=== PATIENT | male | born 1950 | race Caucasian/White ===

== ENCOUNTER 2017-03-27 23:05 | Emergency (ER) | payer OTHER ==
[2017-03-27 23:21] VITALS: TEMP 98; BMI 28.0
[2017-03-27] MEDS ORDERED: DECADRON 4 MG/ML SDV IM STA (23:29)
--- NOTE | 2017-03-27 23:32 | ED.PDOC ---
General ED Provider: Dr. MARCO LOYD Chief Complaint: Dizziness Stated Complaint: Been dizzi for couple days, but getting worse in 2-3 days, also has some allergies, cold symptoms. dizzi moving head, bending. Time Seen by Physician: 23:30 Mode of Arrival: Walk-In Information Source: Patient Primary Care Provider: GEORGETTE PHELPS Nursing and Triage Documentation Reviewed and Agree: Yes Neurological Complaint Exam - Dizziness Complaint/Exam Onset: Gradual Symptoms Are: Still present Timing: Constant Episodes Lasting: Hours Initial Severity: Moderate Current Severity: Moderate Character: Reports: Room spinning Aggravating: Reports: Position change, Supine to erect, Change in head position Alleviating: Reports: Rest Associated Signs and Symptoms: Denies: Nausea, Vomiting, Diaphoresis, Tinnitus, Chest pain, Short of air, Palpitations, Unsteady gait, GI blood loss, Visual changes, Decreased oral intake, Change in medication, Change in diet, OTC meds, Loss of balance Related History: Similar episode Cardiac Risk Factors: Reports: Hypertension CVA Risk Factors: Reports: Hypertension Related Surgical History: Reports: None JVD Present: No Carotid Bruit Present: No Rectal Heme Positive: No Nystagmus Present: No Gag Reflex Present: Yes Meningeal Signs Positive: No Focal Weakness: Present: None Focal Sensory Loss: Present: None Gait: Normal [id number]: Normal Findings Romberg Test Positive: No Babinski Sign: Negative Right, Negative Left Heel to Toe Normal: No Preet-Hallpike Test Positive: No Differential Diagnoses: Labyrinthitis, Meniere's Quality Indicators for Cardiac Chest Pain: EKG in 10min. Review of Systems - Review Of Systems Constitutional: Reports: No symptoms Eyes: Reports: No symptoms Ears, Nose, Mouth, Throat: Reports: No symptoms Respiratory: Reports: No symptoms Cardiac: Reports: No symptoms GI: Reports: No symptoms : Reports: No symptoms Musculoskeletal: Reports: No symptoms Skin: Reports: No symptoms Neurological: Reports: No symptoms Endocrine: Reports: No symptoms Hematologic/Lymphatic: Reports: No symptoms All Other Systems: Reviewed and Negative Past Medical History - Past Medical History Previously Healthy: No Endocrine: Reports: Hyperthyroid Cardiovascular: Reports: Hypertension Respiratory: Reports: None Hematological: Reports: None Gastrointestinal: Reports: None Genitourinary: Reports: None Neuro/Psych: Reports: Anxiety Musculoskeletal: Reports: Arthritis, Back Pain Cancer: Reports: Other (prostate) - Surgical History General Surgical History: Reports: None - Family History Family History: Reports: None - Social History Smoking Status: Former smoker Hx Substance Use: No Alcohol Screening: None - Immunizations Tetanus Shot up to Date: Yes Physical Exam - Physical Exam Appearance: Well-appearing, No pain distress, Well-nourished Eyes: REMI, EOMI, Conjunctiva clear ENT: Ears normal, Nose normal, Oropharynx normal Respiratory: Airway patent, Breath sounds clear, Breath sounds equal, Respirations nonlabored Cardiovascular: RRR, Pulses normal, No rub, No murmur GI/: Soft, Nontender, No masses, Bowel sounds normal, No Organomegaly Musculoskeletal: Normal strength, ROM intact, No edema, No calf tenderness Skin: Warm, Dry, Normal color Neurological: Sensation intact, Motor intact, Reflexes intact, Cranial nerves intact, Alert, Oriented Psychiatric: Affect appropriate, Mood appropriate Interpretation - Radiology Interpretation Radiology Interpretation By: Radiologist Radiology Results: Positive Exam Interpreted: CT Scan Critical Care Note - Critical Care Note Total Time (mins): 0 Course - Course Hematology/Chemistry: 03/27/17 23:30 03/27/17 23:30 Orders, Labs, Meds: Lab Review 03/27/17 03/27/17 23:30 23:30 WBC 5.63 RBC 4.70 Hgb 15.4 Hct 42.6 MCV 90.6 MCH 32.8 H MCHC 36.2 H RDW Coeff of Tai 13.5 Plt Count 148 Immature Gran % (Auto) 0.2 Neut % (Auto) 49.0 Lymph % (Auto) 35.9 [place] % (Auto) 10.5 H Eos % (Auto) 3.0 Baso % (Auto) 1.4 Immature Gran # (Auto) 0.0 Neut # 2.8 Lymph # 2.0 [place] # 0.6 Eos # 0.2 Baso # 0.1 Sodium 140 Potassium 3.8 Chloride 105 Carbon Dioxide 27 Anion Gap 11.8 BUN 20 H Creatinine 0.95 Estimated GFR (MDRD) 79.00 BUN/Creatinine Ratio 21.05 Glucose 180 H Calcium 9.7 Total Bilirubin 2.27 H AST 33 ALT 61 Alkaline Phosphatase 97 Total Creatine Kinase 75 Troponin I 0.0310 Total Protein 7.8 Albumin 3.8 Globulin 4.0 Albumin/Globulin Ratio 0.95 Orders Category Date Time Status EKG-(ED ONLY) Stat CARDIO 03/27/17 23:29 Completed CBC W/ AUTO DIFF Stat LAB 03/27/17 23:30 Completed COMPREHENSIVE METABOLIC PANEL Stat LAB 03/27/17 23:30 Completed CREATINE KINASE Stat LAB 03/27/17 23:30 Completed TROPONIN I Stat LAB 03/27/17 23:30 Completed Dexamethasone 4 mg/ml Inj [Decadron 4 mg/ml Sdv] MEDS 03/27/17 23:29 Discontinued 4 mg IM ONCE STA Ketorolac Tromethamine [Toradol] MEDS 03/28/17 00:41 Discontinued 30 mg IM ONCE STA CT HEAD W/O CONTRAST Stat RADS 03/27/17 23:29 Completed Medications Discontinued Medications Generic Name Dose Route Start Last Admin Trade Name Freq PRN Reason Stop Dose Admin Dexamethasone Sodium Phosphate 4 mg 03/27/17 23:29 03/27/17 23:41 Decadron 4 Mg/Ml Sdv IM 03/27/17 23:30 4 mg ONCE STA Administration Ketorolac Tromethamine 30 mg 03/28/17 00:41 Toradol IM 03/28/17 00:42 ONCE STA Vital Signs: Temp Pulse Resp BP Pulse Ox 03/27/17 23:44 54 L 138/68 03/27/17 23:43 54 L 167/72 H 03/27/17 23:08 98 F 56 L 20 168/71 H 98 Departure - Departure Time of Disposition: 00:48 Disposition: HOME SELF-CARE Discharge Problem: Dizziness Instructions: Dizziness (ED) Condition: Good Pt referred to PMD for follow-up: Yes Additional Instructions: REST iNCREASE HYDRATION F/U WITH dR PHELPS IN 2-3 DAYS Prescriptions: Cephalexin [Keflex] 500 mg PO Q12HR #20 capsule Prednisone 10 mg PO BIDWM #14 tablet Allergies/Adverse Reactions: Allergies No Known Allergies Allergy (Unverified 03/27/17 23:20) Home Medications: Ambulatory Orders Alprazolam [Xanax] 0.5 mg PO TID PRN 03/27/17 Cyanocobalamin (Vitamin B-12) [Vitamin B-12] 1,000 mcg PO DAILY 03/27/17 Furosemide [Lasix] 40 mg PO DAILY 03/27/17 Hydrocodone Bit/Acetaminophen [[place] 7.5-325] 7.5 - 325 mg PO Q8H PRN 03/27/17 Lisinopril [Zestril] 20 mg PO BID 03/27/17 Potassium Chloride [K-Dur] 20 meq PO TID 03/27/17 Cephalexin [Keflex] 500 mg PO Q12HR #20 capsule 03/28/17 Prednisone 10 mg PO BIDWM #14 tablet 03/28/17 Disposition Discussed With: Patient, Family
[2017-03-27 23:38] LABS: BASOPHILS # (AUTO) 0.1 K/uL (0-0.2); BASOPHILS % (AUTO) 1.4 % (0.0-3.0); EOSINOPHILS # (AUTO) 0.2 K/ul (0.0-0.7); HEMATOCRIT 42.6 % (42.0-52.0); HEMOGLOBIN 15.4 g/dl (14.0-18.0); IMMATURE GRANULOCYTE % (AUTO) 0.2 % (0.0-5.0); LYMPHOCYTES % (AUTO) 35.9 (10.0-50.0); MEAN CORPUSCULAR HEMOGLOBIN 32.8 pg (27.0-31.0); MEAN CORPUSCULAR HGB CONC 36.2 (31.8-35.4); MEAN CORPUSCULAR VOLUME 90.6 fl (80.0-94.0); MONOCYTES # (AUTO) 0.6 K/uL (0.4-2.0); MONOCYTES % (AUTO) 10.5 (0-10); NEUTROPHILS # (AUTO) 2.8 K/ul (2.0-6.9); PLATELET COUNT 148 10^3/uL (140-440); WHITE BLOOD COUNT 5.63 K/ul (4.2-10.2)
[2017-03-27 23:44] VITALS: BP 138/68
[2017-03-28 00:03] LABS: ALBUMIN 3.8 g/dL (3.4-5.0); ALBUMIN/GLOBULIN RATIO 0.95; ANION GAP 11.8; BILIRUBIN,TOTAL 2.27 mg/dL (0.00-1.20); BUN/CREATININE RATIO 21.05; CALCIUM 9.7 mg/dL (8.2-10.2); CREATININE 0.95 mg/dL (0.60-1.10); POTASSIUM 3.8 mmol/L (3.5-5.1); TOTAL PROTEIN 7.8 g/dL (5.8-8.1); TROPONIN I 0.031 ng/ml (0.0000-0.4000)
--- NOTE | 2017-03-28 00:15 | CT ---
EXAM: CT head without contrast 03/27/2017. Sagittal and coronal reformatted images obtained HISTORY: Dizziness COMPARISON: None. FINDINGS: There is no evidence of intracranial hemorrhage. The midline is maintained. There is no h ydrocephalus. Generalized atrophy. Chronic small vessel ischemic changes. No cerebellar tonsillar ectopia. Evaluation of the calvarium shows no fracture. Small right mastoid effusion. IMPRESSION: 1. No intracranial hemorrhage. 2. Atrophy and small vessel ischemic change. 3. Small right mastoid effusion.
[2017-03-28] MEDS ORDERED: TORADOL IM STA (00:41)
== END 2017-03-28 01:04 | disposition home or self-care (01) ==
LOC: ED 23:05
DX: R42 Dizziness and giddiness (principal); I10 Essential (primary) hypertension; Z79.899 Other long term (current) drug therapy
CPT/HCPCS: 36415; 80053; 82550; 84484; 85025; 93005; 93010; 96372; 99283

== ENCOUNTER 2017-12-26 09:00 | Outpatient (CLI) ==
--- NOTE | 2017-12-26 10:29 | DI ---
EXAM: Three views of the right foot. History: Right foot pain. Findings: No acute fracture or dislocation. No abnormal calcifications or radiopaque foreign bodies . Mild polyarticular joint space narrowing. No erosive osseous changes. Impression: 1. No acute osseous abnormality. 2. Mild polyarticular arthritis
== END 2017-12-26 09:01 | disposition home or self-care (01) ==
LOC: RAD 09:00
PROVIDERS: ATTEND Emergency Medicine
DX: M79.671 Pain in right foot (principal)

== ENCOUNTER 2018-04-09 10:13 | Outpatient (CLI) ==
[2018-04-10 21:54] VITALS: BMI 26.9
== END 2018-04-09 10:14 | disposition home or self-care (01) ==
LOC: FCC-LAB 10:13
PROVIDERS: ATTEND Family Medicine
DX: R73.9 Hyperglycemia, unspecified (principal); R35.1 Nocturia; Z85.51 Personal history of malignant neoplasm of bladder
CPT/HCPCS: 36415; 83037

== ENCOUNTER 2018-04-10 21:33 | Inpatient (IN) ==
[2018-04-10 21:54] VITALS: BMI 26.9
[2018-04-10] MEDS ORDERED: SODIUM CHLORIDE 1,000 ML IV STA ×2 (21:59→23:56)
--- NOTE | 2018-04-10 22:23 | CT ---
EXAM: CT head without contrast. HISTORY: Change in confusion. PROCEDURE: Contiguous axial CT images of the head without contrast with coronal and sagittal reforma ts. FINDINGS: The ventricles and basal cisterns are normal in size and configuration. No evidence of ma ss or midline shift. No intracranial hemorrhage or evidence of large vessel infarct. No extra-axial fluid collection. The paranasal sinuses and mastoid air cells are well-aerated and normal in appear ance. Impression: Negative CT of the head.
--- NOTE | 2018-04-10 23:42 | CT ---
Exam: CT of the abdomen and pelvis without contrast History: Elevated liver enzymes Technique: [address] of the abdomen and pelvis without intravascular contrast FINDINGS: The lung bases are clear. The liver density is diffusely decreased measuring 26 HU. Prio r cholecystectomy. Normal pancreas, spleen and adrenal glands. Kidneys and proximal collecting syste m are unremarkable. The appendix is normal. Atherosclerotic calcification of the aorta with infraren al ectasia measuring maximum of 2.4 cm. Bowel loops demonstrate normal caliber. No inflamatory change seen in the mesentery or retroperitoneum. Possible prior prostatectomy. Normal urinary bladder. Pelvic bowel loops are unremarkable. No inflam matory change in the pelvic fat. No acute abnormality of the abdominal or pelvic skeleton. Impression: 1. No inflammatory process, bowel or urinary obstruction is seen. 2. Liver steatosis
[2018-04-10] MEDS ORDERED: HUMULIN R 100 UNIT in SODIUM CHLORIDE 100 ML IV SCH (23:45)
[2018-04-11] MEDS ORDERED: HUMULIN R ONE (00:01)
--- NOTE | 2018-04-11 00:02 | ED.PDOC ---
General ED Provider: Dr. BITA GRAY-ER Chief Complaint: Diabetes Stated Complaint: my blood sugars are up--my legs are cramping and im thirsty Time Seen by Physician: 21:50 Mode of Arrival: Walk-In Information Source: Patient, Family Exam Limitations: No limitations Primary Care Provider: DANTE BERGER Nursing and Triage Documentation Reviewed and Agree: Yes Does patient meet sepsis criteria?: No System Inflammatory Response Syndrome: Not Applicable Sepsis Protocol: For patient's 13 years and over: Temp is 96.8 and below OR 101 and greater Pulse >90 BPM Resp >20/minute Acutely Altered Mental Status Are patient's symptoms suggestive of a new infection, such as: -Pneumonia -Skin, Soft Tissue -Endocarditis -UTI -Bone, Joint Infection -Implantable Device -Acute Abdominal Infection -Wound Infection -Meningitis -Blood Stream Catheter Infection -Unknown Endocrine Complaint Exam - Diabetic Complication Complaint/Exam Onset/Duration: 3 days Symptoms Are: Still present Timing: Constant Initial Severity: Mild Current Severity: Moderate Character: Alert Aggravating: Reports: Medication change Alleviating: Reports: None Associated Signs and Symptoms: Reports: Polyuria Related History: Reports: DM 2, Insulin requiring Serious Bacterial Infection Risk Factors: Reports: None Acetone on Breath: No Dry Mucous Membranes: Yes Kussmaul Respirations: No Glascow Coma Scale (see protocol): 15 Meningeal Signs: No Focal Weakness: None Focal Sensory Loss: None Gait: Normal Nystagmus Present: No Gag Reflex Present: Yes Finger to Nose: Normal Romberg Test Positive: No Babinski Sign: Negative Right, Negative Left Heel to Toe Normal: Yes Differential Diagnoses: Diabetic Ketoacidosis, Hyperglycemia Quality Indicator For Non-Traumatic Chest Pain/Syncope: EKG Performed Review of Systems - Review Of Systems Constitutional: Reports: No symptoms, Malaise, Weakness Eyes: Reports: No symptoms Ears, Nose, Mouth, Throat: Reports: No symptoms Respiratory: Reports: No symptoms Cardiac: Reports: No symptoms GI: Reports: No symptoms : Reports: No symptoms Musculoskeletal: Reports: No symptoms Skin: Reports: Dryness Neurological: Reports: No symptoms Endocrine: Reports: Increased thirst, Increased urine Hematologic/Lymphatic: Reports: No symptoms All Other Systems: Reviewed and Negative Past Medical History - Past Medical History Previously Healthy: No Endocrine: Reports: DM 2, Hyperthyroid Cardiovascular: Reports: Hypertension Respiratory: Reports: None Hematological: Reports: None Gastrointestinal: Reports: None Genitourinary: Reports: None Neuro/Psych: Reports: Anxiety Musculoskeletal: Reports: Arthritis, Back Pain Cancer: Reports: Other (prostate) - Surgical History General Surgical History: Reports: None - Family History Family History: Reports: None - Social History Smoking Status: Former smoker Hx Substance Use: No Alcohol Screening: None - Immunizations Tetanus Shot up to Date: Yes Physical Exam - Physical Exam Appearance: Well-appearing, No pain distress, Well-nourished Eyes: REMI, EOMI, Conjunctiva clear ENT: Ears normal, Nose normal, Oropharynx normal, Dry mucosa Neck: Supple Respiratory: Airway patent, Breath sounds clear, Breath sounds equal, Respirations nonlabored Cardiovascular: RRR GI/: Soft, Nontender, No masses, Bowel sounds normal, No Organomegaly Musculoskeletal: Normal strength, ROM intact, No edema, No calf tenderness Skin: Warm, Dry, Normal color Neurological: Sensation intact, Motor intact, Reflexes intact, Cranial nerves intact, Alert, Oriented Psychiatric: Affect appropriate, Mood appropriate Interpretation - Radiology Interpretation Radiology Interpretation By: Radiologist Radiology Results: Negative Exam Interpreted: CT Scan Re-Evaluation - Re-Evaluation Time of Re-Evaluation: 00:03 Status: Improved Vital Signs Stable: Yes Pain Level: 0 Appearance: NAD Lungs: Clear Skin: Warm and Dry Neuro: Alert and Oriented X3 CV: RRR Physician Notification - Case Discussed Physician Notified: dr berger Time of Notification: 00:03 Critical Care Note - Critical Care Note Total Time (mins): 30 Course - Course Hematology/Chemistry: 04/10/18 22:17 04/10/18 22:17 Orders, Labs, Meds: Lab Review 04/10/18 04/10/18 04/10/18 21:58 22:01 22:01 WBC RBC Hgb Hct MCV MCH MCHC RDW Coeff of Tai Plt Count Immature Gran % (Auto) Neut % (Auto) Lymph % (Auto) [place] % (Auto) Eos % (Auto) Baso % (Auto) Immature Gran # (Auto) Neut # (Auto) Lymph # (Auto) [place] # (Auto) Eos # (Auto) Baso # (Auto) Puncture Site Rrad O2 Saturation 93.0 L ABG pH 7.424 ABG pCO2 38.4 ABG pO2 66.0 L ABG HCO3 25.1 ABG Total CO2 26 ABG Base Excess 1 Ace Test + FiO2 % 21.0 Sodium Potassium Chloride Carbon Dioxide Anion Gap BUN Creatinine Estimated GFR (MDRD) BUN/Creatinine Ratio Glucose Calcium Total Bilirubin AST ALT Alkaline Phosphatase Ammonia Total Creatine Kinase CK-MB (CK-2) CK-MB (CK-2) % Troponin I Total Protein Albumin Globulin Albumin/Globulin Ratio Urine Color Yellow Urine Clarity Clear Urine pH 5.5 Ur Specific [place] <=1.005 Urine Protein Negative Urine Glucose (UA) 3+ H Urine Ketones Negative Urine Blood Negative Urine Nitrite Negative Urine Bilirubin Negative Urine Urobilinogen 0.2 Ur Leukocyte Esterase Negative Urine Opiates Screen Negative Ur Oxycodone Screen Negative Urine Methadone Screen Negative Ur Propoxyphene Screen Negative Ur Barbiturates Screen Negative U Tricyclic Antidepress Negative Ur Phencyclidine Scrn Negative Ur Amphetamine Screen Negative U Methamphetamines Scrn Negative U Benzodiazepines Scrn Negative Urine Cocaine Screen Negative U Cannabinoids Screen Negative 04/10/18 04/10/18 04/10/18 22:17 22:17 23:20 WBC 8.46 RBC 5.17 Hgb 16.3 Hct 46.3 MCV 89.6 MCH 31.5 H MCHC 35.2 RDW Coeff of Tai 12.2 Plt Count 202 Immature Gran % (Auto) 0.1 Neut % (Auto) 70.4 Lymph % (Auto) 21.6 [place] % (Auto) 6.7 Eos % (Auto) 0.6 Baso % (Auto) 0.6 Immature Gran # (Auto) 0.0 Neut # (Auto) 6.0 Lymph # (Auto) 1.8 [place] # (Auto) 0.6 Eos # (Auto) 0.1 Baso # (Auto) 0.1 Puncture Site O2 Saturation ABG pH ABG pCO2 ABG pO2 ABG HCO3 ABG Total CO2 ABG Base Excess Ace Test FiO2 % Sodium 124.0 L Potassium 6.23 H* Chloride 87.3 L Carbon Dioxide 25.7 Anion Gap 17.23 BUN 37.8 H Creatinine 1.14 H Estimated GFR (MDRD) 64.00 BUN/Creatinine Ratio 33.15 Glucose 737.4 H* Calcium 9.95 Total Bilirubin 3.47 H AST 93.4 H ALT 195.5 H Alkaline Phosphatase 184.3 H Ammonia < 8.7 L Total Creatine Kinase 274.3 H CK-MB (CK-2) 2.730 H CK-MB (CK-2) % 0.9900 Troponin I 0.018 Total Protein 8.80 H Albumin 4.81 Globulin 3.99 Albumin/Globulin Ratio 1.20 Urine Color Urine Clarity Urine pH Ur Specific [place] Urine Protein Urine Glucose (UA) Urine Ketones Urine Blood Urine Nitrite Urine Bilirubin Urine Urobilinogen Ur Leukocyte Esterase Urine Opiates Screen Ur Oxycodone Screen Urine Methadone Screen Ur Propoxyphene Screen Ur Barbiturates Screen U Tricyclic Antidepress Ur Phencyclidine Scrn Ur Amphetamine Screen U Methamphetamines Scrn U Benzodiazepines Scrn Urine Cocaine Screen U Cannabinoids Screen Orders Category Date Time Status ABG DRAW REQUEST Stat CARDIO 04/10/18 21:59 Completed EKG-(ED ONLY) Stat CARDIO 04/10/18 21:59 Completed BLOOD GLUCOSE MONITORING Q1HR CARE 04/10/18 23:56 Active Cooker Process Cheese [ED CHANGE HOUSE ATTENDANT APPLIED] .ONCE EMERGENCY 04/10/18 22:48 Active ED IV/MEDIPORT/POWERPORT .ONCE EMERGENCY 04/10/18 21:59 Active ABG Stat LAB 04/10/18 21:58 Completed AMMONIA Stat LAB 04/10/18 23:20 Completed CBC W/ AUTO DIFF Stat LAB 04/10/18 22:17 Completed COMPREHENSIVE METABOLIC PANEL Stat LAB 04/10/18 22:17 Completed CREATINE KINASE Stat LAB 04/10/18 22:17 Completed HEPATITIS PANEL, ACUTE Stat LAB 04/10/18 22:17 Received SERUM PROTEIN ELECTROPHORESIS Stat LAB 04/10/18 22:17 Received TROPONIN I Stat LAB 04/10/18 22:17 Completed URINALYSIS C & S IF INDICATED Stat LAB 04/10/18 22:01 Completed URINE DRUG SCREEN (RAPID FOR ED) [DRUG SCREEN, URINE, LAB 04/10/18 22:01 Completed RAPID] Stat 0.9 % Sodium Chloride [Saline Flush] MEDS 04/10/18 21:59 Ordered 1 syr IVF PRN PRN 0.9 % Sodium Chloride [Sodium Chloride] 100 ml MEDS 04/10/18 23:45 Ordered Insulin Regular, Human [Humulin R] 100 unit IV 2 unit/hr Sodium Chloride 0.9% [Sodium Chloride] 1,000 ml MEDS 04/10/18 21:59 Discontinued IV 100 mls/hr Sodium Chloride 0.9% [Sodium Chloride] 1,000 ml MEDS 04/10/18 23:56 Active IV 150 mls/hr CT ABDOMEN/PELVIS WO CONTRAST Stat RADS 04/10/18 22:[address] HEAD W/O CONTRAST Stat RADS 04/10/18 22:00 Completed Medications Generic Name Dose Route Start Last Admin Trade Name Freq PRN Reason Stop Dose Admin Insulin Human Regular 100 unit 100 mls @ 2 mls/hr 04/10/18 23:45 / Sodium Chloride IV .Q24H SARAI Protocol 2 UNIT/HR Sodium Chloride 1,000 mls @ 150 mls/hr 04/10/18 23:56 Sodium Chloride IV 04/11/18 04:38 .Q6H40M STA Sodium Chloride 1 syr 04/10/18 21:59 Saline Flush IVF PRN PRN To flush IV Discontinued Medications Generic Name Dose Route Start Last Admin Trade Name Freq PRN Reason Stop Dose Admin Sodium Chloride 1,000 mls @ 100 mls/hr 04/10/18 21:59 04/10/18 22:20 Sodium Chloride IV 04/11/18 07:58 100 mls/hr .Q10H STA Administration Vital Signs: Temp Pulse Resp BP Pulse Ox 04/10/18 21:43 98.4 F 81 20 121/77 94 L Departure - Departure Time of Disposition: 00:03 Disposition: ADMITTED INPATIENT Discharge Problem: Hyperglycemia due to type 2 diabetes mellitus Qualifiers: Diabetes mellitus mcfp insulin use: unspecified mcfp insulin use status Qualified Code(s): E11.65 - Type 2 diabetes mellitus with hyperglycemia Condition: Fair Pt referred to PMD for follow-up: Yes IPMP verified?: No Allergies/Adverse Reactions: Allergies No Known Allergies Allergy (Verified 04/10/18 21:54) Home Medications: Ambulatory Orders Alprazolam [Xanax] 0.5 mg PO TID PRN 03/27/17 Furosemide [Lasix] 40 mg PO DAILY 03/27/17 Hydrocodone Bit/Acetaminophen [[place] 7.5-325] 7.5 - 325 mg PO Q8H PRN 03/27/17 Lisinopril [Zestril] 20 mg PO BID 03/27/17 Potassium Chloride [K-Dur] 20 meq PO TID 03/27/17 Transfer Form Completed: No Disposition Discussed With: Patient, Family
[2018-04-11] MEDS ORDERED: NORCO 7.5-325 PO PRN (00:08)
[2018-04-11] MEDS ORDERED: XANAX PO PRN (00:08)
[2018-04-11] MEDS ORDERED: HUMULIN R 100 UNIT in SODIUM CHLORIDE 100 ML IV SCH ×2 (00:09→17:09)
[2018-04-11] MEDS ORDERED: KAYEXALATE SUSP PO STA (00:10)
--- NOTE | 2018-04-11 00:40 | PCM ---
- Chief Complaint Chief Complaint: Hyperglycemia, newly diagnosed DM as of 04/10/18, confusion, weakness, elevated liver enzymes, bladder cancer. - History of Present Illness History of Present Illness: 67 yr old white male present with in ER julian, new patient to me as of yesterday. HE presented to my clinic with leg cramps/trouble sleeping and prominent nocturia on 04/09/18. We ordered CBC/CMP/magnesium, UA had glucose, checked A1C in a non diabetic and I was called by lab with A1C of 10.7. He was instructed to come back into clinic 04/10/18 for further evaluation. He came into office 04/10/18 at 8 am and blood glucose was 500. We discussed his new dx , he has not been previously diabetic and reviewed dietary needs, food health, eye health, BP health, heart health and discussed multiple facets of the DM dx. Labs were pending other than the A1C but we discussed insulin, demo how to give shot using pen and he gave himself 10 units of lantus. DIscussed to return to see me in am. DIscussed consideration for overnight obs hospital stay, declined. I was paged just after midnight 04/11/18 that patient has been in ER and that labs were abnl. He presented to ER with w/ c/o sugars up, legs cramping and thirsty. Dr. Lopez in ER saw him 21:50. SIRS not active, no e/o infection. Sx present ~1 week, reported polyuria, polydipsia but no polyphagia. Newly dx dm as of today actually. History of bladder cancer, history of CHF, following with Dr. Nesbitt historically but changing to me because met me once previously. GCS 15 in ER. ROS reviewed and he felt better already after having some fluids. DM 2, HTN, thyroid disease, anxiety, arthritis, back pain, bladder cancer, former smoker by history. Dr. lopez called me and he noted Sodium of 124, K+ 6.23, cl 87.3, Creatinine 1.14 w/ GFR 64, Glucose 737.4, a1c from yesterday 10.7, calcium 9.5. Oddly bili 3.47, AST 93.4, ALT 195.5, alk phos 184.3, ammonia is fine but CK 274.3, Troponin 0.018, EKG normal. Dehydrational labs evident. Tox negative. Urine 3+ glucose. ABG appeared okay with O2 93, pH 7.424, pC02 38.4, p02 66, hco3 25.1, co2 26. I checked on patient in ER and he was feeling fine, better actually. Cramps were better, less thirsty and he felt more energy. He has no complaints at present other than really tired, really thirsty. Cramps better, no chest pain, no SOA, no abd pain, no N/V/D, no URI symptoms. Polyuria seems to be improving per his report. We reviewed labs together Sodium 124 corrected to 139 and normal with degree of hyperglycemia of 737. Dr. Lopez noted that he gave some kayexalte, which we discussed may complicate the treatment. WE reviewed imaging together CT Abd/pelvis without contrast: Fatty Liver/BRIDGES is possible. CT Head negative. - Review of Systems Constitutional: weakness, fatigue, other (polyphagia.). No: fever, chills, sweats, loss of appetite Eyes: blurred vision, double-vision. No: discharge, itching, pain, redness, photophobia, other Ears: No: pain, bleeding, drainage, ringing, hearing loss, other Nose: No: bleeding, congestion, discharge, other Throat: No: pain, swelling, voice change, other Mouth: No: bleeding, pain, swelling, other Respiratory: cough, shortness of air (chronic). No: wheeze, hemoptysis, pain with breathing, other Cardiovascular: No: chest pain, left arm pain, diaphoresis, PND, orthopnea, edema, palpitations, syncope, other Gastrointestinal: No: abdominal pain, other, nausea, vomiting, diarrhea, melena , hematemesis, hematochezia, dysphagia, constipation Genitourinary: dysuria, frequency, incontinence, other (bladder cancer, polyuria ) Neurological: dizziness, numbness, weakness. No: headache, seizure, speech difficulty, problems with walking, tremor, fainting, other Musculoskeletal: No: pain, swelling in joints, other Skin: No: rash, pruritus, lacerations, wounds, bruising, other Immunology: No: hives, itching, frequent infections, difficulty healing, other Hematology: No: easy bruising, easy bleeding, swollen glands, other Endocrine: weight changes, excessive thirst, excessive hunger, polyuria Psychiatric: depression. No: anxiety, sleeplessness, hopelessness, suicidal, hallucinations, other Habits: No: tobacco use (former user), substance use, alcohol use, other - Past Medical History Past Medical History: Arthritis, CHF, HTN, Prostate Ca, Bladder CA. Diabetes newly diagnosed. Leg cramps, fatigue. Anxiety, essential HTN - Past Surgical History Past Surgical History: Cholecystectomy, prostate surgery, back surgery. Thyroid disease. - Allergies Allergies/Adverse Reactions: Allergies Allergy/AdvReac Type Severity Reaction Status Date / Time No Known Allergies Allergy Verified 04/10/18 21:54 - Medications Medications: Medications Generic Name Dose Route Start Last Admin Trade Name Freq PRN Reason Stop Dose Admin Hydrocodone Bitart/Acetaminophen tab 04/11/18 00:08 [place] 7.5-325 PO Q8H PRN MODERATE PAIN Alprazolam 0.5 mg 04/11/18 00:08 Xanax PO TID PRN Anxiety Enoxaparin Sodium 40 mg 04/11/18 09:00 Lovenox SUBCUT DAILY SARAI Insulin Human Regular 100 unit 100 mls @ 2 mls/hr 04/10/18 23:45 04/11/18 00: 07 / Sodium Chloride IV 04/11/18 00:09 2 unit/hr .Q24H SARAI 2 mls/hr Administration Protocol 2 UNIT/HR Sodium Chloride 1,000 mls @ 150 mls/hr 04/10/18 23:56 04/11/18 00:09 Sodium Chloride IV 04/11/18 04:38 150 mls/hr .Q6H40M STA Administration Insulin Human Regular 100 unit 100 mls @ 2 mls/hr 04/11/18 00:09 04/11/18 00: 12 / Sodium Chloride IV Not Given .Q24H SARAI Protocol 2 UNIT/HR Sodium Chloride 1 syr 04/10/18 21:59 Saline Flush IVF PRN PRN To flush IV - Family History Past Family History: Father heart disease, diabetes. Mother family Diabetes. - Social History Past Social History: Lives with , former smoker. Retired now. 25-50 pack year smoking history. - Vital Signs Temperature: 98.4 F Pulse Rate: 69 Respiratory Rate: 20 Blood Pressure: 110/72 O2 Sat by Pulse Oximetry: 94 - Body Composition Height: 6 ft 1 in Weight: 204 lb Body Mass Index (BMI): 26.9 - Physical Examination HEENT: Constitutional: Appearance-No acute distress, Consistent with stated age. Orientation- Oriented x 3, alertGait-Normal pace, normal arm movement. Build and Nutrition-[BMI mildly elevated but appropriate for medicare] General- Patient is pleasant and cooperative with the interview and exam. No odor of fruit. Integumentary: General-No rashes, ulcers or lesions. Palpation- Normal skin moisture/turgor. Skin is warm to touch, appropriate. Capillary refill is normal bilateral Upper and lower extremity. Head/Neck: Head- normocephalic and atraumatic. Neck- without visible/palpable lumps or pulsations. Palpation- No bony tenderness about head/neck along frontal, occipital, temporal, parietal, mastoid, jawline, zygoma, orbit or any other location. NO temporal artery tenderness. No TMJ tenderness. Neck Supple. Thyroid-No thyromegaly, no nodules Eye: Bilaterally PERRLA, EOMI. No discharge. Upper and lower eyelids are normal. Sclera/conjunctiva normal without discharge. Cornea is normal and clear. Lens is normal. Eyeball appears normal. No ciliary flushing, no conjunctival injection. ENMT: Pinna- normal without tenderness or erythema. External auditory canal Left- normal without erythema or discharge, no excessive cerumen. External auditory canal Right-normal without erythema or discharge, no excessive cerumen. TM left- Levi/pearly, normal light reflex and anatomy TM Right- Levi/ pearly, normal light reflex and anatomy Hearing Assessment-normal to conversational speech. Nose and sinus- No sinus tenderness along frontal/ maxillary region. External appearance normal and midline. Nares- bilateral quiet airflow, no discharge. Nasal mucosa- No bleeding noted and no ulcerations observed. [place], moist. Turbinates non boggy. Lips- normal color, moist without cracks/lesions Oral Cavity/Palate- hard/soft palate intact without lesions, oral mucosa pink and moist. Dentition assessed [poor dentition]. Tongue normal midline. Oropharynx- no pharyngeal erythema, Uvula midline. No post nasal drip. No exudate. Salivary glands- Non tender to palpation CHEST/LUNG: Inspection- symmetric chest wall no pectus deformity. Normal effort , no distress, no use of accessory muscles. Palpation- nontender sternum, ribline. No abnormal pulsations. Auscultation- Breath sounds normal throughout all lung arellano. Normal tracheal sounds, Normal bronchial sounds overlying sternum, Bronchovessicular sounds normal between scapulae posteriorly, Normal vessicular breath sounds heard throughout periphery. Lungs are clear today. Adventitious sounds- No wheezes, rales, rhonchi. CARDIOVASCULAR: Carotid artery- normal, no bruits or abnormal pulsations. Jugular vein- no pulsations. Palpation/Percussion- Normal PMI, no palpable thrill Auscultation- Regular rate and rhythm. III/ systolic murmur noted in sitting/ supine positions. Did not radiate. Extremities- no digital clubbing, cyanosis, edema, increased warmth. ABDOMEN: Inspection- normal and no visible pulsations. Normal contour. Auscultation- Bowel sounds normal, no abdominal bruits. Palpation/Percussion- soft, non-tender, no rebound tenderness, no rigidity (guarding), no jar tenderness, no masses. Liver-no hepatomegaly, Spleen no splenomegaly, Hernias - none. No Acites. Peripheral Vascular: Upper extremity Left- Normal temperature with pink nailbeds and no ulcerations. Upper extremity Right- Normal temperature with pink nailbeds and no ulcerations. Lower extremity- Normal temperature with pink nailbeds and no ulcerations. DP pulses 2+ bilaterally. Pedal hair intact. Normal capillary refill. Edema- No edema. Musculoskeletal: Generalized-No generalized swelling or edema of extremities, no digital clubbing or cyanosis, neurovascularly intact all four extremities. Upper extremity- Symmetrical posture. No visible deformity. Normal sensation along medial and lateral upper extremity proximally and distally. NO tenderness overlying shoulder, lateral/medial epicondyle. Spray Gunner 5/5 and strength 5/5 bilateral UE. Elbow palpated, no tenderness overlying olecranon. Normal supination, pronation to active/passive ROM and to resisted rotation. Bicep insertion/tricep insertion appear normal without obvious pathology. Rotator cuff evaluated and intact. Normal wrist ROM bilaterally. Normal hand movement, intrinsic muscles of hands normal. No tenderness to palpation of hands/wrists/ elbows. Lower extremity- Hip: Not tender to palpation, no pain, no swelling, edema or erythema of surrounding tissue, normal strength and tone. Normal appearing hip ROM bilaterally without pain. Knee: Knee ROM normal. No tenderness overlying trochanters, no tenderness about patella, quad tendon, patellar tendon. No tenderness at tibial tuberosity. Ankle: normal ROM not tender to palpation along medial/lateral malleolus. Spine/Ribs- No deformities, masses or tenderness, no known fractures, normal strength, Normal ROM. Normal stability No tenderness along C/T/L spine. Normal appearing ROM about spine. Neurological: General- Moves all 4 extremities symmetrically. Symmetrical face and body posture. Cranial nerves- individually evaluated II-XII and intact. PERRLA, Normal EOMI, visual/special senses appear intact, Face is symmetrical and normal sensation/movement, normal tongue, normal strength/posture of neck musculature. Reflexes- intact with DTR 2+ patellar, Achilles, bicep, brachial, tricep. Ankle clonus normal with 2 beats. Strength- 5/5 bilateral UE and LE. Soft touch- intact bilateral UE and LE. Temperature sensation- intact bilateral UE and LE. Neuropsych: Oriented- Person, place, time. (AAOx3), Mood/affect- normal and congruent. Able to articulate well. Speech-Normal speech, normal rate, normal tone, normal use of language, volume and coherence. Thought content- normal with ability to perform basic computations and apply abstract thought/reason. Associations- intact, no SI/HI, no hallucinations, delusions, obsessions. Judgment/insight- Appropriate. Memory-Recall intact, remote and recent memory intact. Knowledge- Age appropriate fund of knowledge, concentration and attention span normal. FMSE in office 04/10/18 was 26-27/30. He has GCS 15 now and FMSE basd on pieces we completed remains ~27 and stable. He is pleasant well cleaned. Lymphatic: Head/Neck- normal size and non tender to palpation. Axillary- normal size and non tender to palpation. Femoral and Inguinal- normal size and non tender to palpation. - Lab/Tests/Diagnostic Imaging Lab/Tests/Diagnostic Imaging: Laboratory Last Values WBC 8.46 K/ul (4.2-10.2) 04/10/18 22:17 RBC 5.17 10^6/ul (4.70-6.10) 04/10/18 22:17 Hgb 16.3 g/dl (14.0-18.0) 04/10/18 22:17 Hct 46.3 % (42.0-52.0) 04/10/18 22:17 MCV 89.6 fl (80.0-94.0) 04/10/18 22:17 MCH 31.5 pg (27.0-31.0) H 04/10/18 22:17 MCHC 35.2 (31.8-35.4) 04/10/18 22:17 RDW Coeff of Tai 12.2 % (11.6-14.8) 04/10/18 22:17 Plt Count 202 10^3/uL (140-440) 04/10/18 22:17 Immature Gran % (Auto) 0.1 % (0.0-5.0) 04/10/18 22:17 Neut % (Auto) 70.4 04/10/18 22:17 Lymph % (Auto) 21.6 (10.0-50.0) 04/10/18 22:17 [place] % (Auto) 6.7 (0-10) 04/10/18 22:17 Eos % (Auto) 0.6 % (0.0-7.0) 04/10/18 22:17 Baso % (Auto) 0.6 % (0.0-3.0) 04/10/18 22:17 Immature Gran # (Auto) 0.0 (0.0-1.0) 04/10/18 22:17 Neut # (Auto) 6.0 K/ul (2.0-6.9) 04/10/18 22:17 Lymph # (Auto) 1.8 K/uL (0.60-3.4) 04/10/18 22:17 [place] # (Auto) 0.6 K/uL (0.4-2.0) 04/10/18 22:17 Eos # (Auto) 0.1 K/ul (0.0-0.7) 04/10/18 22:17 Baso # (Auto) 0.1 K/uL (0-0.2) 04/10/18 22:17 Puncture Site Rrad 04/10/18 21:58 O2 Saturation 93.0 % (95-100) L 04/10/18 21:58 ABG pH 7.424 (7.35-7.45) 04/10/18 21:58 ABG pCO2 38.4 mmHg (35-45) 04/10/18 21:58 ABG pO2 66.0 mmHg (85-100) L 04/10/18 21:58 ABG HCO3 25.1 (22.0-26.0) 04/10/18 21:58 ABG Total CO2 26 (22.0-28.0) 04/10/18 21:58 ABG Base Excess 1 (-2.0-2.0) 04/10/18 21:58 Ace Test + 04/10/18 21:58 FiO2 % 21.0 % 04/10/18 21:58 Sodium 124.0 mmol/L (137-145) L 04/10/18 22:17 Potassium 6.23 mmol/L (3.5-5.1) H* 04/10/18 22:17 Chloride 87.3 mmol/L (98-107) L 04/10/18 22:17 Carbon Dioxide 25.7 mmol/L (22-30) 04/10/18 22:17 Anion Gap 17.23 04/10/18 22:17 BUN 37.8 mg/dL (9-20) H 04/10/18 22:17 Creatinine 1.14 mg/dL (0.60-1.10) H 04/10/18 22:17 Estimated GFR (MDRD) 64.00 mL/min 04/10/18 22:17 BUN/Creatinine Ratio 33.15 04/10/18 22:17 Glucose 737.4 mg/dL (74-106) H* 04/10/18 22:17 Calcium 9.95 mg/dL (8.4-10.2) 04/10/18 22:17 Total Bilirubin 3.47 mg/dL (0.2-1.3) H 04/10/18 22:17 AST 93.4 U/L (17-59) H 04/10/18 22:17 ALT 195.5 U/L (0-50) H 04/10/18 22:17 Alkaline Phosphatase 184.3 U/L (56-119) H 04/10/18 22:17 Ammonia < 8.7 umol/L (9-30) L 04/10/18 23:20 Total Creatine Kinase 274.3 U/L (55-170) H 04/10/18 22:17 CK-MB (CK-2) 2.730 ng/ml (0.0-2.38) H 04/10/18 22:17 CK-MB (CK-2) % 0.9900 04/10/18 22: Troponin I 0.018 ng/ml (0.0000-0.120) 04/10/18 22:17 Total Protein 8.80 g/dL (6.3-8.2) H 04/10/18 22: Albumin 4.81 g/dL (3.5-5.0) 04/10/18: Globulin 3.99 04/10/18 22: Albumin/Globulin Ratio 1.20 04/10/18 22:17 Urine Color Yellow (YELLOW) 04/10/18 22: Urine Clarity Clear (CLEAR) 04/10/18 22: Urine pH 5.5 (5-9) 04/10/18 22: Ur Specific [place] <=1.005 (1.005-1.030) 04/10/18 22: Urine Protein Negative (NEGATIVE) 04/10/18 22:01 Urine Glucose (UA) 3+ (NEGATIVE) H 04/10/18 22:01 Urine Ketones Negative (NEGATIVE) 04/10/18 22:01 Urine Blood Negative (NEGATIVE) 04/10/18 22:01 Urine Nitrite Negative (NEGATIVE) 04/10/18 22: Urine Bilirubin Negative (NEGATIVE) 04/10/18 22:01 Urine Urobilinogen 0.2 (0.2) 04/10/18 22:01 Ur Leukocyte Esterase Negative (NEGATIVE) 04/10/18 22:01 Urine Opiates Screen Negative (NEGATIVE) 04/10/18 22:01 Ur Oxycodone Screen Negative (NEGATIVE) 04/10/18 22:01 Urine Methadone Screen Negative (NEGATIVE) 04/10/18 22:01 Ur Propoxyphene Screen Negative (NEGATIVE) 04/10/18 22:01 Ur Barbiturates Screen Negative (NEGATIVE) 04/10/18 22:01 U Tricyclic Antidepress Negative (NEGATIVE) 04/10/18 22:01 Ur Phencyclidine Scrn Negative (NEGATIVE) 04/10/18 22:01 Ur Amphetamine Screen Negative (NEGATIVE) 04/10/18 22:01 U Methamphetamines Scrn Negative (NEGATIVE) 04/10/18 22:01 U Benzodiazepines Scrn Negative (NEGATIVE) 04/10/18 22:01 Urine Cocaine Screen Negative (NEGATIVE) 04/10/18 22:01 U Cannabinoids Screen Negative (NEGATIVE) 04/10/18 22:01 CT Head: Negative CT Abd/Pelvis Fatty liver. ABG: Normal. Corrected sodium Normal. - Assessment (1) Hyperglycemia due to type 2 diabetes mellitus Status: Acute Code(s): E11.65 - TYPE 2 DIABETES MELLITUS WITH HYPERGLYCEMIA SNOMED Code(s): 52762706, 764172474573254 Qualifiers: Diabetes mellitus terminal block assembler insulin use: unspecified nursing home insulin use status Qualified Code(s): E11.65 - Type 2 diabetes mellitus with hyperglycemia (2) Elevated CK-MB level Status: Acute Code(s): R74.8 - ABNORMAL LEVELS OF OTHER SERUM ENZYMES SNOMED Code(s): 786918120 (3) CHF (congestive heart failure) Status: Acute Code(s): I50.9 - HEART FAILURE, UNSPECIFIED SNOMED Code(s): 25625954 (4) Transaminitis Status: Acute Code(s): R74.0 - NONSPEC ELEV OF LEVELS OF TRANSAMNS & LACTIC ACID DEHYDRGNSE SNOMED Code(s): 901756584, 578481603 (5) Hyperkalemia Status: Acute Code(s): E87.5 - HYPERKALEMIA SNOMED Code(s): 88894950 (6) Leg cramps Status: Acute Code(s): R25.2 - CRAMP AND SPASM SNOMED Code(s): 618759139 (7) Hyperglycemia Status: Acute Code(s): R73.9 - HYPERGLYCEMIA, UNSPECIFIED SNOMED Code(s): 49942030 - Plan Plan: Hyperglycemia: So far no e/o ketones in urine, ABG was okay. His sodium was corrected to 139 and okay, K+ is up due to cellular shfiting and as noted ABG okay. The patient is a newly dx diabetic. I will give him 0.05 units regular insulin per hour. This equates to 5 units now and 5 units per hour, which is on the side of caution for a newly diabetic possibly brittle diabetic. He has history of CHF, we will watch his heart closely, watch weight closely and we will gently hydrate with 150 ml/hour which is ~1.25x maintainence. He was given kayexalate, which complicates the process. WE will check accuchecks every hour. Nursing to call when he gets to ~250 glucose as we will then change fluids to D5 NS. K+ was elevated on admission, kayexalate was given. We will check K+ q 2 hours. We will correct if and when it drops below 5.3. Rough Goal to correct in first 24 hours is 9 L water, 100ml/kg. 7-10meq sodium correction 3-5 meq K+ correction. MOnitor for JON, monitor for CHF, monitor for worsening. After further discussion with nurses, patient was not given Kayexalate and I have asked that they not use this agent. - NS 150ml/hour - Insulin 5 units/hour (0.05) - Accucheck q 1 hour w/ goal 50-70 drop per hour. When <250 we will discuss discharge. - Add K+ when <5.3 in blood. Start with 20meq and increase to 40meq if needed. - A1C within 24 hours of admit. - Fluid change to D5NS when Glucose at 250. We will continue the 5 units per hour. - Serum ketones. Elevated Liver enzymes: May be related to BRIDGES. Etiology unknown. CT abd/ pelvis done without contrast due to current status. If improving may consider doing with contrast and Ct chest with contrast. Cancer of bladder/prostate per his history. - Hepatitis panel - CMP in am Leg Cramps: With history of elevated CKMB concerning for possible rhabdo, we are fluid hydrating. He is not 5X ULN. ELevated CKMB: Monitor serial CK and Serial troponin. Total and CKMB has been up. Troponin to be monitored. Consider consult with cardiology for ?cardiac injury. No known trauma, no known injury, no falls, no other history other than leg cramps. CK-MB is pretty specific for cardiac injury. No chest pain, normal EKG in ER, Telemetry has been okay so far. - Will reach out to Dr. Nesbitt, patient former PCP and get last OV, last weight , last vitals - Last Echo requested. CHF: Monitor volume closely. Daily weight, I+O Hyperkalemia: 1/3 patients present with hyperglycemia and elevated K+. Monitor Q 2 hours and we will change fluids to D5NS. He was given kayexalate, which may drive K+ down. - Cardiac telemetry Diet: ADA 1800 kcal. DVT PROPHY: Lovenox 40 daily. Activity: Up with assist, fall precaution. Disposition: Admit to inpatient status SCU 1. Accucheck q 1 hour, K+ checked q 2 hours, adjust fluids/insulin as needed. Nursing to call if Glucose <220 or if K+ <5.3. Monitor closely for CHF changes, monitor weight/daily I+O. I will check 2 more troponin and CK panel as his ck was elevated a little. He has no chest pain. At present he has hyperglycemia w/o DKA or obvious hyperosmolar issues (USUALLY >1000). We will monitor closely, however. I talked with SCU nurse, they will keep me updated through am until I get back to clinic at 7 to make sure no sudden drops. Accuchec machine cannot read high enough, lab will have to check sugars. Admit time today >70 minutes.
[2018-04-11] MEDS: HUMULIN R 100 UNIT in SODIUM CHLORIDE 100 ML IV SCH ×3 (01:30→19:30)
[2018-04-11] MEDS ORDERED: POTASSIUM CHLORIDE IV STA (02:37)
[2018-04-11] MEDS ORDERED: SODIUM CHLORIDE IV STA (02:37)
[2018-04-11] MEDS ORDERED: SODIUM CHLORIDE 0.9%-KCL 20 MEQ 1,000 ML IV STA (02:42)
[2018-04-11] MEDS: NORCO 7.5-325 PO PRN (05:10)
[2018-04-11] MEDS ORDERED: NON-FORMULARY MEDICATION (Lisinopril [Zestril] 20 MG) PO SCH (09:00)
[2018-04-11] MEDS: ZESTRIL PO SCH ×2 (09:57→21:08)
[2018-04-11] MEDS: LOVENOX SUBCUT SCH (09:58)
[2018-04-11] MEDS ORDERED: SODIUM CHLORIDE 0.9%-KCL 20 MEQ 1,000 ML IV SCH (10:30)
--- NOTE | 2018-04-11 10:44 | PCM.PROG ---
F/U progress note same date as admit. Patient evaluated at 07:00 and he was feeling much better. Still with cramping of legs through night, no chest pain, no SOA. Tele showed SR, occasional [place] and occasional PAC/pVC. Labs reviewed this am sodium improving from 124 to 130.3. Potassium has dropped as expected to 5.08 at 2:10, 4.91 at 04:15 this am. Creatinine remains stable. Sugars have drpped from 737.4 to 624.2 at 00:59, to 603.4 at 02:10, to 439.7 at 04:15. The troponin has increased minimally and is not likely indicative of [place] with increase from 0.018 to 0.024 at 00:59 and .028 at 04:15 this am. Liver enzymes are improving. He has had 475ml out through the night relating to 0.74ml/kg/hour output urine, which is good. CK is trending up and CKMB is trending up. We have talked with patient, with overnight nursing, case management this am. Leg cramping persists. He has no other symptoms at present besides mild fatigue and nausea, which are much better than admit. Vitals monitored, I+O monitored, EKG from ER evaluated, telemetry evaluated. I will continue the fluid hydration at 150 w/ 20 K+. Monitor K+ and if continues to drop incresae to 40meq in the fluid. When sugars hit 250 we will change to D5NS + Kcl. I will check US of bilateral legs due to cramping, I will also contact cardiology , obtain previous OV, labs, weight, Echo results from PCP. History of thyroid disease, I will check TSH/ Free T4 as well. Talked with patient at lunch. PM labs stable as of 1300. Total CK has dropped from 365 to 332.3. CKMB 3.280 to 3.610. Troponin I 0.030 to 0.025. Called at 445 and patient is now <250. We will start taper of insulin and start subcutaneous insulin and use this tomorrow. Tonight q 2 hour accuchecks once we start the titration down from the insulin drip. He needs roughly 46 units per day. I will start him on 15 units of lantus and we will use 5 units of humalog TID with meals. Additionally we will add 1 unit per 50 about 150 in addition to this schedule. Echo was normal, cardiology does not feel the CKMB is from cardiac source. WE will continue to f/u with patient, suspect he will remain here on 04/12/18 and d/ c hopefully am of 04/13/18 if continues to do well with subcutaneous insulin. Plan: - Insulin 5 units/hour x 2 hours, 4 units/hour x 2 hours, 3 units/hour x 2 hours then 2 units/hour through night and we will reassess in am. - Lantus 15 units QHS - humalog 5 units per meal + correctional 1 unit for every 50 over 150. Monitor glucose closely. Repeat CKMB in am Repeat Troponin in am TSH/T4 free okay.
--- NOTE | 2018-04-11 12:18 | US ---
Exam: Strickland-scale and color duplex Doppler ultrasonographic evaluation of the right and left lower ex tremity venous structures with spectral waveform analysis. Reason for exam: Leg pain. Comparison: None available. FINDINGS: There is spontaneous flow with compression and augmentation in the right and left common femoral, gre ater saphenous, profunda, superficial femoral, popliteal, peroneal, posterior tibial, and left anteri or tibial vein. The right anterior tibial vein is not seen on the exam. Impression: No ultrasonographic evidence of thrombus is seen in the right or left lower extremity venous structur es. The right anterior tibial vein is not seen on the exam.
--- NOTE | 2018-04-11 15:26 | ECHO2D ---
Date of Exam: 04/11/19 Ordering Physician: DR. DANTE BACA Room #: SCU1 Reason for Echo: ELEVATED CARDIAC ENZYMES, CHF, DM M-Mode Normal Adult Results LV Dimensions Normal Adult Results AoV Opening excursions >1.6 >1.6 LVEDD-base- 3.5-5.8 5.0 Ao root dimensions 2.0-3.7 3.8 LVESD-base- 3.1-4.6 L. Atrium dimensions 1.9-3.8 4.4 Post. Wall thickness 0.8-1.1 1.3 IV septum (thickness) 0.7-1.2 1.3 Post. Wall excursion 0.72-1.3 NORMAL Septal motion NORMAL Systolic motion R. Ventricular cavity 1.5-2.0 NORMAL LVEF 60% 50% Paradoxical septal wall motion NORMAL 2-D : 2-D M Mode Echocardiogram was performed using apical four chamber and left parasternal long and short axis views. Mitral, tricuspid and aortic valves appear to be normal. Contractility of the left ventricle seems to be normal, so is the cavity size. Enlarged Left atrial cavity size. Aortic roots appear to be normal. There is no pericardial effusion. There is no thrombus noted in the left ventricular or left aortic cavity. No mitral valve prolapse noted. M-MODE: MV: NORMAL AV: NORMAL TV: NORMAL PV: CHAMBER SIZE: ENLARGED LEFT ATRIAL CAVITY WALL MOTION: NORMAL PERICARDIUM: NORMAL INTERPRETATION: 1. LEFT VENTRICULAR HYPERTROPHY WITH ENLARGED LEFT ATRIAL CAVITY 2. NORMAL LEFT VENTRICULAR CONTRACTILITY 3. NORMAL VALVES MTDD
[2018-04-11] MEDS: DEXTROSE 5%-NS IV SOLUTION 1,000 ML IV SCH ×2 (16:54→23:02)
[2018-04-11] MEDS: HUMALOG SUBCUT SCH (18:00)
[2018-04-11] MEDS ORDERED: LANTUS SUBCUT SCH (21:00)
[2018-04-12] MEDS: NORCO 7.5-325 PO PRN (01:30)
[2018-04-12] MEDS: DEXTROSE 5%-NS IV SOLUTION 1,000 ML IV SCH (05:22)
--- NOTE | 2018-04-12 07:57 | PCM.PROG ---
Subjective: 67 yr ol WM alone in room asleep upon entry, easily aroused. C/O poor night sleep. Accuchecks q1 hour, insulin gtt back to 5 and then titrated down, now at 3. Glucose through night reviewed, low so far 199. D5NS running 150/hour. No cramps in legs through night, urine output >0.5ml/kg/hour, still mayi colored. He had mild JON/neck pain last night, corrected with norco. Otherwise he is feeling much better, better energy, less fatigue. Lovenox has been used for DVT prophy. Home meds continued. Poor sleep in hospital makes sense in light of regular checks. Discussed case with ON and am nurse, case management. Patient has done okay through night, eating meals reasonably well. Sugars spiked again last night back into mid 300's and I increased drip back down and had them titrate down. Will have them start lantus this am, meal time insulin this am. Stop gtt at 12. Start q 2 hour accucheck today at 10 with correctional to include 1 unit for every 50 above 150. (150-200 1, 201-250 2, 251-300 3). We will continue to re-evaluate patient. Sodium is improving, cbc showed dilutional effect, calcium with low alb corrected to normal. K+ is holding just under 4. I will correct with PO K+ with meals start daily and consider BID. Kidney function remains fine, producing good urine as listed. He is improving, this is hospital day #2 admitted 04/11/18. Weight is stable/ controlled. Echo yesterday completed and looked good. I think the dextrose needs to be stopped as this may be driving up the sugars. Denies SOA, chest pain , vision changes. Tele reviewed with nursing. Doing better overall. Outside Records Reviewed: 220 lb 10/11/17 99.8 kg. H/o CHF unspec chronicity. LF systolic function normal EF 58.9%. LV thickness concentric hypertrophy. NO valve issues. No mention of CHF or diastolic dysfxn. Dr. Nesbitt note 09/28/17. present numerous issues. HTN/Arrhythmia, PAC/PVC, CHF years history of diastolic problem. SOA, LE edema on /off. Follows with cards. Hyperthyroidism. Numerous years. Chronic narcotic pain med s for back pain. GLucose 165 09/2017 AST 53, ALT 97 appears chronically elevated. Bili 2.3 chronically elevated, cr 0.75. Lipids 141 total, hdl 27, ldl 72. ESR 11, CRP 0.64, TSH 1.150, Free T4 1.14. CBC with WBC 6.19, hgb 16.6, plt 207. PSA 11/24/16 <0.070, 3.820 09/09/16, same 09/02/16. No recent A1C. May have had hyperglycemia for a while. REVIEW OF SYMPTOMS: (Positives bolded) General: weight loss, fever, chills, night sweats, fatigue, appetite loss HEENT: blurry vision, eye pain, eye discharge, dry eyes, decreased vision, sore throat tinnitus, bloody nose, hearing loss, sinus pain/pressure, ear pain/ pressure. Respiratory: shortness of breath, cough, hemoptysis, wheezing, pleurisy, Cardiovascular: chest pain, PND, palpitation, edema, orthopnea, syncope, swelling of extremities Gastro: Nausea, vomiting, diarrhea, hematemesis, abdominal pain, constipation Genito: hematuria, dysuria, glycosuria, hesitancy, frequency, incontinence [place]: Arthralgia, myalgia, muscle weakness, joint swelling, NSAID use Skin: rash, pruritis, sores, nail changes, skin thickening, change in wart/mole , itching, rash, new lesions, pruritus, nail changes Neuro: Migraine, numbness, ataxia, tremor, vertigo, weakness improving, memory loss, Irritability, dizziness Improving Endocrine: excessive thirst, polyuria, cold intolerance, heat intolerance, goiter Psychiatric: depression, anxiety, anti-depressants, alcohol abuse, drug abuse, insomnia, change in sleep pattern due to hospital and mood changes Heme/lymph: easy bruising, bleeding gums, blood clots, swollen glands, lymphedema, Allergic/immune: allergic rhinitis, hay fever, asthma, hives Objective: Vital Signs - 24 hr 04/11/18 04/11/18 04/11/18 10:00 10:41 14:00 Temperature 97.7 F 98.4 F 98.5 F Pulse Rate 60 69 62 Respiratory 16 20 14 Rate Blood Pressure 113/67 110/72 109/68 O2 Sat by Pulse 97 94 L 95 Oximetry 04/11/18 04/11/18 04/11/18 17:02 17:11 20:00 Temperature 97.7 F 97.7 F Pulse Rate 63 60 66 Respiratory 18 18 16 Rate Blood Pressure 94/60 94/60 129/80 O2 Sat by Pulse 94 L 100 Oximetry 04/11/18 04/12/18 04/12/18 22:00 02:00 05:59 Temperature 97.9 F 97.7 F 97.6 F Pulse Rate 68 62 54 L Respiratory 19 15 17 Rate Blood Pressure 115/68 136/80 106/64 O2 Sat by Pulse 100 100 100 Oximetry Constitutional: Appearance-No acute distress, Consistent with stated age. Orientation- Oriented x 3, alertGait-Normal pace, normal arm movement. General- Patient is pleasant and cooperative with the interview and exam. Asleep on entry easily awoken. Integumentary: General-No rashes, ulcers or lesions. Palpation- Normal skin moisture/turgor. Skin is warm to touch, appropriate. Capillary refill is normal bilateral Upper and lower extremity. Head/Neck: Head- normocephalic and atraumatic. Neck- without visible/palpable lumps or pulsations. Palpation- No bony tenderness about head/neck along frontal, occipital, temporal, parietal, mastoid, jawline, zygoma, orbit or any other location. NO temporal artery tenderness. No TMJ tenderness. Neck Supple. Thyroid-No thyromegaly, no nodules Eye: Bilaterally PERRLA, EOMI. No discharge. Upper and lower eyelids are normal. Sclera/conjunctiva normal without discharge. Cornea is normal and clear. Lens is normal. Eyeball appears normal. No ciliary flushing, no conjunctival injection. ENMT: Nose and sinus- No sinus tenderness along frontal/maxillary region. External appearance normal and midline. Nares- bilateral quiet airflow, no discharge. Nasal mucosa- No bleeding noted and no ulcerations observed. [place], moist. Turbinates non boggy. Lips- normal color, moist without cracks/lesions Oral Cavity/Palate- hard/soft palate intact without lesions, oral mucosa pink and moist. rynx- no pharyngeal erythema, Uvula midline. No post nasal drip. No exudate. Salivary glands- Non tender to palpation CHEST/LUNG: Inspection- symmetric chest wall no pectus deformity. Normal effort , no distress, no use of accessory muscles. Palpation- nontender sternum, ribline. No abnormal pulsations. Auscultation- Breath sounds normal throughout all lung arellano. Normal tracheal sounds, Normal bronchial sounds overlying sternum, Bronchovessicular sounds normal between scapulae posteriorly, Normal vessicular breath sounds heard throughout periphery. Lungs are clear today. Adventitious sounds- No wheezes, rales, rhonchi. No crackles, no e/o fluid overload at this time. CARDIOVASCULAR: Carotid artery- normal, no bruits or abnormal pulsations. Jugular vein- no pulsations. Palpation/Percussion- Normal PMI, no palpable thrill Auscultation- Regular rate and rhythm. No murmur noted in sitting, supine positions. Extremities- no digital clubbing, cyanosis, edema, increased warmth. ABDOMEN: Inspection- normal and no visible pulsations. Normal contour. Auscultation- Bowel sounds normal, no abdominal bruits. Palpation/Percussion- soft, non-tender, no rebound tenderness, no rigidity (guarding), no jar tenderness, no masses. Liver-no hepatomegaly, Spleen no splenomegaly, Hernias - none. Rectal not examined. Peripheral Vascular: Upper extremity Left- Normal temperature with pink nailbeds and no ulcerations. Upper extremity Right- Normal temperature with pink nailbeds and no ulcerations. Lower extremity- Normal temperature with pink nailbeds and no ulcerations. DP pulses 2+ bilaterally. Pedal hair intact. Normal capillary refill. Edema- No edema. Musculoskeletal: Generalized-No generalized swelling or edema of extremities, no digital clubbing or cyanosis, neurovascularly intact all four extremities. Lower extremity- Hip: Not tender to palpation, no pain, no swelling, edema or erythema of surrounding tissue, normal strength and tone. Normal appearing hip ROM bilaterally without pain. Spine/Ribs- No deformities, masses. + tenderness paraspinal bilateral lumbar. No straight leg raise. Calves not tender. , no known fractures, normal strength , Normal ROM. Normal stability No tenderness along C/T/L spine. Normal appearing ROM about spine. Neurological: General- Moves all 4 extremities symmetrically. Symmetrical face and body posture. Cranial nerves- individually evaluated II-XII and intact. PERRLA, Normal EOMI, visual/special senses appear intact, Face is symmetrical and normal sensation/movement, normal tongue, normal strength/posture of neck musculature. Reflexes- intact with DTR 2+ patellar, Achilles, bicep, brachial, tricep. Ankle clonus normal with 2 beats. Strength- 5/5 bilateral UE and LE. Soft touch- intact bilateral UE and LE. Temperature sensation- intact bilateral UE and LE. Neuropsych: Oriented- Person, place, time. (AAOx3), Mood/affect- normal and congruent. Able to articulate well. Speech-Normal speech, normal rate, normal tone, normal use of language, volume and coherence. Thought content- normal with ability to perform basic computations and apply abstract thought/reason. Associations- intact, no SI/HI, no hallucinations, delusions, obsessions. Judgment/insight- Appropriate. Memory-Recall intact, remote and recent memory intact. Knowledge- Age appropriate fund of knowledge, concentration and attention span normal. Lymphatic: Head/Neck- normal size and non tender to palpation. Axillary- normal size and non tender to palpation. Femoral and Inguinal- normal size and non tender to palpation. Laboratory Last Values WBC 4.24 K/ul (4.2-10.2) 04/12/18 06:00 RBC 4.15 10^6/ul (4.70-6.10) L 04/12/18 06:00 Hgb 13.2 g/dl (14.0-18.0) L 04/12/18 06:00 Hct 38.7 % (42.0-52.0) L D 04/12/18 06:00 MCV 93.3 fl (80.0-94.0) 04/12/18 06:00 MCH 31.8 pg (27.0-31.0) H 04/12/18 06:00 MCHC 34.1 (31.8-35.4) 04/12/18 06:00 RDW Coeff of Tai 12.5 % (11.6-14.8) 04/12/18 06:00 Plt Count 106 10^3/uL (140-440) L D 04/12/18 06:00 Immature Gran % (Auto) 0.2 % (0.0-5.0) 04/12/18 06:00 Neut % (Auto) 49.6 04/12/18 06:00 Lymph % (Auto) 37.0 (10.0-50.0) 04/12/18 06:00 [place] % (Auto) 7.8 (0-10) 04/12/18 06:00 Eos % (Auto) 4.2 % (0.0-7.0) 04/12/18 06:00 Baso % (Auto) 1.2 % (0.0-3.0) 04/12/18 06:00 Immature Gran # (Auto) 0.0 (0.0-1.0) 04/12/18 06:00 Neut # (Auto) 2.1 K/ul (2.0-6.9) 04/12/18 06:00 Lymph # (Auto) 1.6 K/uL (0.60-3.4) 04/12/18 06:00 [place] # (Auto) 0.3 K/uL (0.4-2.0) L 04/12/18 06:00 Eos # (Auto) 0.2 K/ul (0.0-0.7) 04/12/18 06:00 Baso # (Auto) 0.1 K/uL (0-0.2) 04/12/18 06:00 ESR 4 mm/hr (0-15) 04/11/18 13:30 Puncture Site Rrad 04/10/18 21:58 O2 Saturation 93.0 % (95-100) L 04/10/18 21:58 ABG pH 7.424 (7.35-7.45) 04/10/18 21:58 ABG pCO2 38.4 mmHg (35-45) 04/10/18 21:58 ABG pO2 66.0 mmHg (85-100) L 04/10/18 21:58 ABG HCO3 25.1 (22.0-26.0) 04/10/18 21:58 ABG Total CO2 26 (22.0-28.0) 04/10/18 21:58 ABG Base Excess 1 (-2.0-2.0) 04/10/18 21:58 Ace Test + 04/10/18 21:58 FiO2 % 21.0 % 04/10/18 21:58 Sodium 133.1 mmol/L (137-145) L 04/12/18 06:00 Potassium 3.92 mmol/L (3.5-5.1) 04/12/18 06:00 Chloride 104.1 mmol/L (98-107) 04/12/18 06:00 Carbon Dioxide 26.6 mmol/L (22-30) 04/12/18 06:00 Anion Gap 6.32 04/12/18 06:00 BUN 21.7 mg/dL (9-20) H 04/12/18 06:00 Creatinine 0.73 mg/dL (0.60-1.10) 04/12/18 06:00 Estimated GFR (MDRD) 107.00 mL/min 04/12/18 06:00 BUN/Creatinine Ratio 29.72 04/12/18 06:00 Glucose 331.3 mg/dL (74-106) H D 04/12/18 06:00 Calcium 7.91 mg/dL (8.4-10.2) L 04/12/18 06:00 Magnesium 2.24 mg/dL (1.6-2.3) 04/11/18 13:30 Total Bilirubin 1.32 mg/dL (0.2-1.3) H 04/12/18 06:00 AST 60.1 U/L (17-59) H 04/12/18 06:00 ALT 112.0 U/L (0-50) H D 04/12/18 06:00 Alkaline Phosphatase 78.2 U/L (56-119) D 04/12/18 06:00 Ammonia < 8.7 umol/L (9-30) L 04/10/18 23:20 Total Creatine Kinase 140.9 U/L (55-170) 04/12/18 06:00 CK-MB (CK-2) 2.540 ng/ml (0.0-2.38) H 04/12/18 06:00 CK-MB (CK-2) % 1.8000 04/12/18 06:00 Troponin I 0.026 ng/ml (0.0000-0.120) 04/12/18 06:00 Total Protein 5.98 g/dL (6.3-8.2) L 04/12/18 06:00 Albumin 2.98 g/dL (3.5-5.0) L 04/12/18 06:00 Globulin 3.00 04/12/18 06:00 Albumin/Globulin Ratio 0.99 04/12/18 06:00 TSH 1.660 uIU/L (0.465-4.68) 04/11/18 13:30 Free T4 1.40 ng/dL (0.78-2.19) 04/11/18 13:30 Urine Color Yellow (YELLOW) 04/10/18 22:01 Urine Clarity Clear (CLEAR) 04/10/18 22:01 Urine pH 5.5 (5-9) 04/10/18 22:01 Ur Specific [place] <=1.005 (1.005-1.030) 04/10/18 22:01 Urine Protein Negative (NEGATIVE) 04/10/18 22:01 Urine Glucose (UA) 3+ (NEGATIVE) H 04/10/18 22:01 Urine Ketones Negative (NEGATIVE) 04/10/18 22:01 Urine Blood Negative (NEGATIVE) 04/10/18 22:01 Urine Nitrite Negative (NEGATIVE) 04/10/18 22:01 Urine Bilirubin Negative (NEGATIVE) 04/10/18 22:01 Urine Urobilinogen 0.2 (0.2) 04/10/18 22:01 Ur Leukocyte Esterase Negative (NEGATIVE) 04/10/18 22:01 Urine Opiates Screen Negative (NEGATIVE) 04/10/18 22:01 Ur Oxycodone Screen Negative (NEGATIVE) 04/10/18 22:01 Urine Methadone Screen Negative (NEGATIVE) 04/10/18 22:01 Ur Propoxyphene Screen Negative (NEGATIVE) 04/10/18 22:01 Ur Barbiturates Screen Negative (NEGATIVE) 04/10/18 22:01 U Tricyclic Antidepress Negative (NEGATIVE) 04/10/18 22:01 Ur Phencyclidine Scrn Negative (NEGATIVE) 04/10/18 22:01 Ur Amphetamine Screen Negative (NEGATIVE) 04/10/18 22:01 U Methamphetamines Scrn Negative (NEGATIVE) 04/10/18 22:01 U Benzodiazepines Scrn Negative (NEGATIVE) 04/10/18 22:01 Urine Cocaine Screen Negative (NEGATIVE) 04/10/18 22:01 U Cannabinoids Screen Negative (NEGATIVE) 04/10/18 22:01 Acetone, Qual None (NONE) 04/11/18 01:12 WBC Trends 04/10/18 04/11/18 04/12/18 Range/Units 22:17 04:15 06:00 WBC 8.46 8.01 4.24 (4.2-10.2) K/ul H/H Trends 04/10/18 04/11/1804/12/18 Range/Units 22:17 04:15 06:00 Hgb 16.3 16.1 13.2 L (14.0-18.0) g/dl Hct 46.3 45.5 38.7 L D (42.0-52.0) % BUN/CR Trends 04/10/18 04/11/18 04/11/18 Range/Units 22:17 04:15 13:30 BUN 37.8 H 39.7 H 36.1 H (9-20) mg/dL Creatinine 1.14 H 1.16 H 0.93 (0.60-1.10) mg/dL 04/12/18 Range/Units 06:00 BUN 21.7 H (9-20) mg/dL Creatinine 0.73 (0.60-1.10) mg/dL CPK/Troponin I Trends 04/10/18 04/11/18 04/11/18 Range/Units 22:17 00:59 04:15 Total Creatine Kinase 274.3 H 262.7 H 313.8 H (55-170) U/L CK-MB (CK-2) 2.730 H 2.740 H 2.780 H (0.0-2.38) ng/ml CK-MB (CK-2) % 0.9900 1.0400 0.8800 Troponin I 0.018 0.024 0.028 (0.0000-0.120) ng/ml 04/11/18 04/11/18 04/12/18 Range/Units 07:50 13:30 06:00 Total Creatine Kinase 365.7 H 332.3 H 140.9 (55-170) U/L CK-MB (CK-2) 3.280 H 3.610 H 2.540 H (0.0-2.38) ng/ml CK-MB (CK-2) % 0.8900 1.0800 1.8000 Troponin I 0.030 0.025 0.026 (0.0000-0.120) ng/ml Corrected Calcium: 8.7 based on albumin. Echocardiogram: VERBAL FROM CARDIOLOGY STABLE GOOD EF, NO CHF at present. CT Chest/abd/pelvis ordered for today. (1) Hyperglycemia due to type 2 diabetes mellitus Status: Acute Code(s): E11.65 - TYPE 2 DIABETES MELLITUS WITH HYPERGLYCEMIA SNOMED Code(s): 46199432 (2) Elevated CK-MB level Status: Acute Code(s): R74.8 - ABNORMAL LEVELS OF OTHER SERUM ENZYMES SNOMED Code(s): 137874293 (3) CHF (congestive heart failure) Status: Chronic Code(s): I50.9 - HEART FAILURE, UNSPECIFIED SNOMED Code(s): 90375771 (4) Transaminitis Status: Chronic Code(s): R74.0 - NONSPEC ELEV OF LEVELS OF TRANSAMNS & LACTIC ACID DEHYDRGNSE SNOMED Code(s): 817753259 (5) Hyperkalemia Status: Resolved Code(s): E87.5 - HYPERKALEMIA SNOMED Code(s): 15929775 (6) Leg cramps Status: Resolved Code(s): R25.2 - CRAMP AND SPASM SNOMED Code(s): 217427029 (7) Hyperglycemia Status: Chronic Code(s): R73.9 - HYPERGLYCEMIA, UNSPECIFIED SNOMED Code(s): 37733570 (8) Pancytopenia Status: Acute Code(s): D61.818 - OTHER PANCYTOPENIA SNOMED Code(s): 713929095 (9) Hypocalcemia Status: Acute Code(s): E83.51 - HYPOCALCEMIA SNOMED Code(s): 1008231 Plan: Hyperglycemia: Was better up until last night, unknown bump. Working on titrating down on drip and fluids. We will continue to work on this and goal is to stop drip by noon today. Last Glucose from PCP 165 09/2017 as noted above , no A1C. This may have been present much longer than we thought as he states this was not an issue up until this past week. Cramping is better. Sugars now into 300 range regularly. On D5NS with 3 units/hour now. Drop by 1 unit q 2 hours and stop drip at 12. We will give him 15 of lantus this am. We will give him q 2 hour accuchecks and we will correct insulin 1 unit for every 50 > 150. The patient agrees with plan. I talked with nursing and they agree. Low glucose was 199, back up to 331 this am despite no breakfast. Kidney function is doing great. Pseudohyponatremia: Corrects to normal. Slowly improving. Pancytopenia: Suspect dilutional effect. Will slow fluids and repeat in am. Hypocalcemia: Corrects to 8.7 from 7.9. Albumin is low. Suspect fluid diluational effect. Slow this down, repeat CMP in am. Telemetry to continue. Bradycardia: Stable, worse when sleeping, not on any HR slowing agents. Monitor , continue tele. Elevated CK-MB improving now finally down from 3.610 to 2.54. CK 140.9. Improving markedly. No further labs. Echo was fine, cardiology does not feel that this is cadiac. Potassium: Correct this with 20meq oral K+ while in hospital daily to BID, start with daily. DVT Prophy: Lovenox to continue 40mg subcut Leg cramps (Acute): resolved no issues 24 hours. Transaminitis (Chronic): Were elevated at same levels previously by PCP. History of prostate cancer. ?Mets. - CT abd/pelvis w and w/o. - CT chest w/ Diet: NPO for now for CT scans then resume. Dispo: Goal for today is to stop drip of insulin and exchange administrator to completely subcut insulin. I also want to work on decreasing fluid burden. He is feeling better, good uout. Meals are consumed. Curing Press Maintainer to see patient today. Will calculate total daily dose today and increase this tomorrow. Hopefully home tomorrow if labs improve and patient gets better. MOnitor labs and f/u with these results. If he can stay in the <250 range for the next 24 hours, I would be happy to d/c and we can f/u regularly in the office to get sugars under control with insulin. Still closely monitoring. Do not know why sugars all of a sudden spiked. Do not know if mets are involved. >35 minutes spent rounding with patient this am.
[2018-04-12] MEDS: K-DUR PO SCH (11:09)
[2018-04-12] MEDS: ZESTRIL PO SCH ×2 (11:09→20:14)
[2018-04-12] MEDS: LANTUS SUBCUT SCH ×2 (11:10→11:11)
[2018-04-12] MEDS: LOVENOX SUBCUT SCH (11:11)
--- NOTE | 2018-04-12 11:35 | CT ---
EXAM: CT of the abdomen pelvis with and without contrast History: Prostate cancer. Comparison: CT abdomen pelvis 04/10/2018, chest CT 04/12/2018 Technique: Multiplanar CT images through the abdomen pelvis were obtained with and without the admin istration of IV contrast Findings: Lung bases are clear. No acute osseous abnormalities. Degenerative changes of the spine. Prominent sclerosis involving the inferior endplate of L1 most likely degenerative in nature. No renal stones and no hydronephrosis. The appendix is not dilated or inflamed. The atherosclerotic vascular calcifications. Status post cholecystectomy. The liver is fatty. No focal liver or splen ic lesions. 1.2 cm benign cyst within the inferior pole of the left kidney. Right kidney is unremar kable. Pancreas and adrenal glands are unremarkable. No dilated loops of bowel. No bladder wall th ickening. Prostate is not seen and likely has been surgically removed. Small fat-containing left in guinal hernia. No perirectal inflammation. No free air and no ascites. No pathologically enlarged lymph nodes. Impression: 1. No acute intra-abdominal or pelvic process. 2. No definite CT evidence for metastatic disease in the abdomen or pelvis. 3. Hepatic steatosis. 4. Simple cyst within the kidney. 5. Prominent sclerosis involving the inferior endplate of L1 most likely degenerative in nature. Ho wever, given history of prostate cancer would correlate with bone scan to evaluate for any underlying metastatic osseous deposits.
[2018-04-12] MEDS: HUMALOG SUBCUT SCH ×4 (11:40→18:21)
--- NOTE | 2018-04-12 11:44 | CT ---
EXAM: CT chest with contrast HISTORY: Prostate cancer with hypocalcemia. Patient with history of prostate cancer COMPARISON: None TECHNIQUE: Serial axial images of the chest were obtained after 75 ml of Omnipaque IV contrast was a dministered. These were obtained from the lung apices to the upper abdomen. FINDINGS: The thyroid is normal. Visualized vessels demonstrate mild atherosclerotic disease. Ther e is no dissection, aneurysm or stenosis. The heart is normal in size without pericardial effusion. There is no mediastinal, hilar or axillary pathologically enlarged lymph nodes. There is no pneumothorax or pleural effusion. There is a calcified granuloma in the right upper lobe anteriorly. There is a 0.2 cm ground-glass nodule right lower lobe on image 51. There is no consol idation, nodule or mass otherwise identified. The airways are patent. There is scattered degenerative disease throughout the spine with no focal lytic or blastic lesion. Soft tissues in the upper abdomen demonstrate diffuse low attenuation in the liver and prior cholecys tectomy. IMPRESSION: 1. There is no acute cardiopulmonary process or evidence of metastatic disease. 2. Ground-glass nodule right lower lobe measures 0.2 cm and is likely postinflammatory. 3. Soft tissues in the upper abdomen are better described on same day CT abdomen pelvis.
--- NOTE | 2018-04-12 12:06 | PCM.CONS ---
CONSULTING PROVIDER: Dr. ASHA DIAZ ATTENDING PROVIDER: Dr. DANTE BACA DATE OF SERVICE: 04/12/18 SUBJECTIVE: This 67 year old WHITE/ M was hospitalized 04/11/18. The patient is seen in consultation due to abnormal CPK. CK-MB levels. The patient is hospitalized because of uncontrolled diabetes with electrolyte imbalance and hyperosmolar status. REVIEW OF SYSTEMS: CONSTITUTIONAL: Weakness and fatigue. No night sweats. No malaise, lethargy. No fever or chills. HEENT: Eyes: No visual changes. No eye pain. No eye discharge. ENT: No runny nose. No epistaxis. No sinus pain. No odynophagia. No congestion. RESPIRATORY: No cough, no congestion. No hemoptysis. Shortness of breath on exertion. CARDIOVASCULAR: No angina symptoms. No CHF symptoms. No atypical chest pain for CAD. No palpitations. No PND, no orthopnea. GASTROINTESTINAL: Polyphagia and polydipsia. No abdominal pain. No nausea or vomiting. No diarrhea or constipation. No hematemesis. No hematochezia. GENITOURINARY: Positive for polyuria. MUSCULOSKELETAL: No musculoskeletal pain; no joint swelling. NEUROLOGICAL: Awake, alert, oriented to time, place and person. No headache. No neck pain. No syncope. No seizures. No dizziness. PSYCHIATRIC: Not anxious. No depression. No suicidal thoughts. No homicidal thoughts. SKIN: No rash. No lesions. No wounds. ENDOCRINE: No unexplained weight loss. No weight gain. HEMATOLOGIC/LYMPHATIC: No anemia. No purpura. No petechiae. No prolonged or excessive bleeding. No palpable lymph nodes. PHYSICAL EXAMINATION: GENERAL: The patient is awake, alert and oriented, lying in bed in no distress. VITAL SIGNS: Temperature 97.6 F, Pulse 54, Respiratory Rate 17, BP 106/64, Pulse Ox 100% HEENT: Head normocephalic, atraumatic. Eyes: Extraocular muscles are intact. Pupils are equal, round and reactive to light and accommodation. Ears: No lesions. Nose appeared normal. Throat: No exudate or erythema. NECK: Supple. No JVD, no carotid bruit. No lymphadenopathy or thyromegaly. LUNGS: Clear to auscultation. Percussion note normal. Chest symmetrical. HEART: S1, S2, no S3. No murmurs. No cyanosis or clubbing. No ascites. Pulses: Dorsalis pedis and posterior tibial pulses +1 to +2 both sides. ABDOMEN: Soft. Non-tender. Bowel sounds active. No CVA tenderness. No mass felt. EXTREMITIES: No edema. Full range of motion of all extremities, equal. NEUROLOGIC: No focal deficit. Cranial nerves II through XII are grossly intact. No headache, no double vision or headache. SKIN: Warm and dry. Intact. Turgor-normal. LYMPHATIC: No palpable lymph nodes/no lymphedema. MUSCULOSKELETAL: Normal joints with no swelling. Muscle tone is normal. LAB REVIEW: 04/12/18 06:00 04/12/18 06:00 04/12/18 06:00: Sodium 133.1 L, Potassium 3.92, Chloride 104.1, Carbon Dioxide 26.6, Anion Gap 6.32, BUN 21.7 H, Creatinine 0.73, Estimated GFR (MDRD) 107.00, BUN/Creatinine Ratio 29.72, Glucose 331.3 H D, Calcium 7.91 L, Total Bilirubin 1.32 H, AST 60.1 H, ALT 112.0 H D, Alkaline Phosphatase 78.2 D, Total Creatine Kinase 140.9, CK-MB (CK-2) 2.540 H, CK-MB (CK-2) % 1.8000, Troponin I 0.026, Total Protein 5.98 L, Albumin 2.98 L, Globulin 3.00, Albumin/Globulin Ratio 0.99 04/12/18 06:00: WBC 4.24, RBC 4.15 L, Hgb 13.2 L, Hct 38.7 L D, MCV 93.3, MCH 31.8 H, MCHC 34.1, RDW Coeff of Tai 12.5, Plt Count 106 L D, Immature Gran % ( Auto) 0.2, Neut % (Auto) 49.6, Lymph % (Auto) 37.0, [place] % (Auto) 7.8, Eos % ( Auto) 4.2, Baso % (Auto) 1.2, Immature Gran # (Auto) 0.0, Neut # (Auto) 2.1, Lymph # (Auto) 1.6, [place] # (Auto) 0.3 L, Eos # (Auto) 0.2, Baso # (Auto) 0.1 04/11/18 13:30: Free T4 1.40 04/11/18 13:30: ESR 4 04/11/18 13:30: Sodium 132.0 L, Potassium 4.84, Chloride 96.8 L, Carbon Dioxide 28.1, Anion Gap 11.94, BUN 36.1 H, Creatinine 0.93, Estimated GFR (MDRD) 81.00, BUN/Creatinine Ratio 38.81, Glucose 258.0 H, Calcium 9.32, Magnesium 2.24, Total Bilirubin 1.87 H, AST 85.0 H, ALT 161.1 H, Alkaline Phosphatase 130.9 H, Total Creatine Kinase 332.3 H, CK-MB (CK-2) 3.610 H, CK-MB (CK-2) % 1.0800, Troponin I 0.025, Total Protein 8.14, Albumin 4.25, Globulin 3.89, Albumin/ Globulin Ratio 1.09, TSH 1.660 04/11/18 07:50: Potassium 4.74, Glucose 269.4 H D, Total Creatine Kinase 365.7 H , CK-MB (CK-2) 3.280 H, CK-MB (CK-2) % 0.8900, Troponin I 0.030 ASSESSMENT: Cardiac status is stable with no evidence of acute myocardial ischemia or MT. The patient doesn't have any symptoms of coronary insufficiency. I agree with the present management. The case is discussed with the attending. Echocardiogram done yesterday showed normal LV contractility, normal valves with borderline LVH. EKG showed sinus rhythm, poor R wave progression, nonspecific ST-T wave change. Changes suggest CKMB is low with total CK borderline elevated. Noncardiac cause of positive CKMB which is very minimal. RECOMMENDATIONS/PLAN: Recommendation by the [place] [employer] is non HDL should be less than 100 use of statin for diabetic patient. A1C goal 6 to 7. All discussed with the . Plan and coordination of the patient's care discussed in the presence of Literary Agent and Nurse. CONDITION: Stable SCRIBED BY: EMILIA CHILEL Crystallographer scribed while in presence of service performed by Dr. ASHA DIAZ on 04/12/18 ([id number])
[2018-04-12] MEDS: SODIUM CHLORIDE 0.9%-KCL 20 MEQ 1,000 ML IV SCH ×2 (12:14→22:10)
[2018-04-12] MEDS ORDERED: POTASSIUM CHLORIDE 10 MEQ VIAL 10 MEQ in SODIUM CHLORIDE 1,000 ML IV SCH (12:30)
[2018-04-12] MEDS: HUMULIN R 100 UNIT in SODIUM CHLORIDE 100 ML IV SCH (13:58)
[2018-04-12] MEDS ORDERED: HUMALOG SUBCUT PRN (14:12)
[2018-04-12] MEDS: HUMALOG SUBCUT PRN ×2 (20:14→22:19)
[2018-04-13] MEDS: HUMALOG SUBCUT PRN ×6 (00:12→13:15)
[2018-04-13] MEDS: NORCO 7.5-325 PO PRN (00:13)
[2018-04-13] MEDS: ZESTRIL PO SCH (08:19)
[2018-04-13] MEDS: K-DUR PO SCH (08:20)
[2018-04-13] MEDS: LOVENOX SUBCUT SCH (08:21)
[2018-04-13] MEDS: LANTUS SUBCUT SCH (08:22)
[2018-04-13] MEDS: HUMALOG SUBCUT SCH ×2 (08:23→13:14)
[2018-04-13 10:07] VITALS: BP 164/76; TEMP 97.9
--- NOTE | 2018-04-13 13:09 | PCM.DC ---
ER: 04/10/18 Admit: 04/11/18 Discharge: 04/13/18 Hyperglycemia (ACUTE) New onset DM. Insulin dependent. Address DM further as outpatient, will check microalbumin, discuss pneumonia vaccines/eye provider etc. HE is on Serg-I already. Elevated CK-MB level (Resolving): Etiology unknown, cardiology evaluation echocardiogram negative. No obvious source. Improved despite unknown origin. Hypocalcemia (Resolved): Pseudohypocalcemia secondary to low albumin. Resolved by d/c. Pancytopenia (Acute): improving, dilutional. repeat cbc 1 week. CHF (congestive heart failure) (Chronic): Echo in hospital completed and EF maintained, no e/o CHF on echo. Echo previous reviewed and no mention. Historical problem that seems stable. Transaminitis (Chronic): Chronic problem, hep C ordered. ABS positive. RNA quant and Genotype ordered. Pending. Abnormal Protein electrophoresis: (UNknown chronicity) Unknown etiology. F/U as outpatient. Abnormal CT chest: thoracic spine findings may need f/u as outpatient. Psuedohyponatremia: (RESOLVING) Corrected when level of hyperglycemia taken into account. Leg Cramps (RESOLVED) Hep C abs + (Acute): F/U labs ordered (1) Hyperglycemia due to type 2 diabetes mellitus Status: Acute Code(s): E11.65 - TYPE 2 DIABETES MELLITUS WITH HYPERGLYCEMIA SNOMED Code(s): 46028529, 710709727929137 Qualifiers: Diabetes mellitus lobsterman insulin use: unspecified lobsterman insulin use status Qualified Code(s): E11.65 - Type 2 diabetes mellitus with hyperglycemia (2) Elevated CK-MB level Status: Acute Code(s): R74.8 - ABNORMAL LEVELS OF OTHER SERUM ENZYMES SNOMED Code(s): 786717981 (3) CHF (congestive heart failure) Status: Chronic Code(s): I50.9 - HEART FAILURE, UNSPECIFIED SNOMED Code(s): 97194314 (4) Transaminitis Status: Chronic Code(s): R74.0 - NONSPEC ELEV OF LEVELS OF TRANSAMNS & LACTIC ACID DEHYDRGNSE SNOMED Code(s): 172956532, 171603437 (5) Hyperkalemia Status: Resolved Code(s): E87.5 - HYPERKALEMIA SNOMED Code(s): 39015476 (6) Leg cramps Status: Resolved Code(s): R25.2 - CRAMP AND SPASM SNOMED Code(s): 274695431 (7) Hyperglycemia Status: Chronic Code(s): R73.9 - HYPERGLYCEMIA, UNSPECIFIED SNOMED Code(s): 92366353 (8) Pancytopenia Status: Acute Code(s): D61.818 - OTHER PANCYTOPENIA SNOMED Code(s): 619934719 (9) Hypocalcemia Status: Acute Code(s): E83.51 - HYPOCALCEMIA SNOMED Code(s): 7485887 (10) Hyponatremia Status: Acute Code(s): E87.1 - HYPO-OSMOLALITY AND HYPONATREMIA SNOMED Code( s): 92283034 (11) Hepatitis C antibody positive in blood Status: Acute Code(s): R76.8 - OTHER SPECIFIED ABNORMAL IMMUNOLOGICAL FINDINGS IN SERUM SNOMED Code(s): 687874807 (12) Abnormal chest CT Status: Acute Code(s): R93.8 - ABNORMAL FINDINGS ON DIAGNOSTIC IMAGING OF BODY STRUCTURES SNOMED Code(s): 460760620, 355111464 Reason for Hospitalization: Marked hyperglycemia 748, new onset diabetes, transaminitis, electrolyte abnormalities, leg cramps, fatigue. Prognosis at Discharge: Sugars improved markedly. Liver enzymes chronically elevated but improved. Leg cramps resolved. Hyperkalemia resolved. Hypocalcemia corrects to normal, hyponatremia corrects to normal. Condition at Discharge: Markedly improved, feels much better. Sugars running ~180-250 which is better than the 748 at admit. WE talked about treatment options. Discharged today after lengthy discussion with about insulin and how to treat DM. Medications at Discharge: Ambulatory Orders Medication Instructions Recorded Alprazolam [Xanax] 0.5 mg PO TID PRN 03/27/17 Furosemide [Lasix] 40 mg PO DAILY 03/27/17 Hydrocodone Bit/Acetaminophen 7.5 - 325 mg PO Q8H PRN 03/27/17 [[place] 7.5-325] Lisinopril [Zestril] 20 mg PO BID 03/27/17 Potassium Chloride [K-Dur] 20 meq PO TID 03/27/17 Insulin Degludec [Tresiba 20 units INJ DAILY #5 insuln.pen 04/13/18 Flextouch U-200] Sample Insulin Lispro [Humalog] 7 - 12 unit SUBCUT TIDWM 30 Days 04/13/18 #5 each Lab/Diagnostics: Laboratory Last Values WBC 3.45 K/ul (4.2-10.2) L 04/13/18 06:45 RBC 4.24 10^6/ul (4.70-6.10) L 04/13/18 06:45 Hgb 13.8 g/dl (14.0-18.0) L 04/13/18 06:45 Hct 39.3 % (42.0-52.0) L 04/13/18 06:45 MCV 92.7 fl (80.0-94.0) 04/13/18 06:45 MCH 32.5 pg (27.0-31.0) H 04/13/18 06:45 MCHC 35.1 (31.8-35.4) 04/13/18 06:45 RDW Coeff of Tai 12.4 % (11.6-14.8) 04/13/18 06:45 Plt Count 109 10^3/uL (140-440) L 04/13/18 06:45 Immature Gran % (Auto) 0.3 % (0.0-5.0) 04/13/18 06:45 Neut % (Auto) 43.8 04/13/18 06:45 Lymph % (Auto) 41.7 (10.0-50.0) 04/13/18 06:45 [place] % (Auto) 9.0 (0-10) 04/13/18 06:45 Eos % (Auto) 3.8 % (0.0-7.0) 04/13/18 06:45 Baso % (Auto) 1.4 % (0.0-3.0) 04/13/18 06:45 Immature Gran # (Auto) 0.0 (0.0-1.0) 04/13/18 06:45 Neut # (Auto) 1.5 K/ul (2.0-6.9) L 04/13/18 06:45 Lymph # (Auto) 1.4 K/uL (0.60-3.4) 04/13/18 06:45 [place] # (Auto) 0.3 K/uL (0.4-2.0) L 04/13/18 06:45 Eos # (Auto) 0.1 K/ul (0.0-0.7) 04/13/18 06:45 Baso # (Auto) 0.1 K/uL (0-0.2) 04/13/18 06:45 ESR 4 mm/hr (0-15) 04/11/18 13:30 Puncture Site Rrad 04/10/18 21:58 O2 Saturation 93.0 % (95-100) L 04/10/18 21:58 ABG pH 7.424 (7.35-7.45) 04/10/18 21:58 ABG pCO2 38.4 mmHg (35-45) 04/10/18 21:58 ABG pO2 66.0 mmHg (85-100) L 04/10/18 21:58 ABG HCO3 25.1 (22.0-26.0) 04/10/18 21:58 ABG Total CO2 26 (22.0-28.0) 04/10/18 21:58 ABG Base Excess 1 (-2.0-2.0) 04/10/18 21:58 Ace Test + 04/10/18 21:58 FiO2 % 21.0 % 04/10/18 21:58 Sodium 133.8 mmol/L (137-145) L 04/13/18 06:00 Potassium 4.04 mmol/L (3.5-5.1) 04/13/18 06:00 Chloride 106.0 mmol/L (98-107) 04/13/18 06:00 Carbon Dioxide 24.2 mmol/L (22-30) 04/13/18 06:00 Anion Gap 7.64 04/13/18 06:00 BUN 14.5 mg/dL (9-20) 04/13/18 06:00 Creatinine 0.63 mg/dL (0.60-1.10) 04/13/18 06:00 Estimated GFR (MDRD) 127.00 mL/min 04/13/18 06:00 BUN/Creatinine Ratio 23.01 04/13/18 06:00 Glucose 154.9 mg/dL (74-106) H D 04/13/18 06:00 Calcium 8.68 mg/dL (8.4-10.2) 04/13/18 06:00 Magnesium 2.24 mg/dL (1.6-2.3) 04/11/18 13:30 Total Bilirubin 1.19 mg/dL (0.2-1.3) 04/13/18 06:00 AST 54.9 U/L (17-59) 04/13/18 06:00 ALT 108.5 U/L (0-50) H 04/13/18 06:00 Alkaline Phosphatase 78.4 U/L (56-119) 04/13/18 06:00 Ammonia < 8.7 umol/L (9-30) L 04/10/18 23:20 Total Creatine Kinase 140.9 U/L (55-170) 04/12/18 06:00 CK-MB (CK-2) 2.540 ng/ml (0.0-2.38) H 04/12/18 06:00 CK-MB (CK-2) % 1.8000 04/12/18 06:00 Troponin I 0.026 ng/ml (0.0000-0.120) 04/12/18 06:00 Serum Total Protein 8.1 g/dL (6.0-8.5) 04/10/18 22:17 Total Protein 6.38 g/dL (6.3-8.2) 04/13/18 06:00 Albumin 3.15 g/dL (3.5-5.0) L 04/13/18 06:00 Albumin % (PEP) 4.0 g/dL (2.9-4.4) 04/10/18 22:17 Globulin 3.23 04/13/18 06:00 Globulin (PEP) 4.1 g/dL (2.2-3.9) H 04/10/18 22:17 Albumin/Globulin Ratio 0.97 04/13/18 06:00 Ueoqx-3-Uiufjpehk 0.3 g/dL (0.0-0.4) 04/10/18 22:17 Qejse-0-Jacqyvfrg 0.7 g/dL (0.4-1.0) 04/10/18 22:17 Beta Globulins 1.1 g/dL (0.7-1.3) 04/10/18 22:17 Gamma Globulins 2.0 g/dL (0.4-1.8) H 04/10/18 22:17 PEP Note Comment (.) 04/10/18 22:17 TSH 1.660 uIU/L (0.465-4.68) 04/11/18 13:30 Free T4 1.40 ng/dL (0.78-2.19) 04/11/18 13:30 Urine Color Yellow (YELLOW) 04/10/18 22:01 Urine Clarity Clear (CLEAR) 04/10/18 22:01 Urine pH 5.5 (5-9) 04/10/18 22:01 Ur Specific [place] <=1.005 (1.005-1.030) 04/10/18 22:01 Urine Protein Negative (NEGATIVE) 04/10/18 22:01 Urine Glucose (UA) 3+ (NEGATIVE) H 04/10/18 22:01 Urine Ketones Negative (NEGATIVE) 04/10/18 22:01 Urine Blood Negative (NEGATIVE) 04/10/18 22:01 Urine Nitrite Negative (NEGATIVE) 04/10/18 22:01 Urine Bilirubin Negative (NEGATIVE) 04/10/18 22:01 Urine Urobilinogen 0.2 (0.2) 04/10/18 22:01 Ur Leukocyte Esterase Negative (NEGATIVE) 04/10/18 22:01 Urine Opiates Screen Negative (NEGATIVE) 04/10/18 22:01 Ur Oxycodone Screen Negative (NEGATIVE) 04/10/18 22:01 Urine Methadone Screen Negative (NEGATIVE) 04/10/18 22:01 Ur Propoxyphene Screen Negative (NEGATIVE) 04/10/18 22:01 Ur Barbiturates Screen Negative (NEGATIVE) 04/10/18 22:01 U Tricyclic Antidepress Negative (NEGATIVE) 04/10/18 22:01 Ur Phencyclidine Scrn Negative (NEGATIVE) 04/10/18 22:01 Ur Amphetamine Screen Negative (NEGATIVE) 04/10/18 22:01 U Methamphetamines Scrn Negative (NEGATIVE) 04/10/18 22:01 U Benzodiazepines Scrn Negative (NEGATIVE) 04/10/18 22:01 Urine Cocaine Screen Negative (NEGATIVE) 04/10/18 22:01 U Cannabinoids Screen Negative (NEGATIVE) 04/10/18 22:01 Acetone, Qual None (NONE) 04/11/18 01:12 Hepatitis A IgM Ab Negative (Negative) 04/10/18 22:17 Hep Bs Antigen Negative (Negative) 04/10/18 22:17 Hep B Core IgM Ab Negative (Negative) 04/10/18 22:17 Hep C Ab Signal/Cutoff > 11.0 s/co ratio (0.0-0.9) H 04/10/18 22:17 Na/K Trends 04/10/18 04/11/18 04/11/18 Range/Units 22:17 02:10 04:15 Sodium 124.0 L 130.3 L (137-145) mmol/L Potassium 6.23 H* 5.08 4.91 (3.5-5.1) mmol/L 04/11/18 04/11/18 04/12/18 Range/Units 07:50 13:30 06:00 Sodium 132.0 L 133.1 L (137-145) mmol/L Potassium 4.74 4.84 3.92 (3.5-5.1) mmol/L 04/13/18 Range/Units 06:00 Sodium 133.8 L (137-145) mmol/L Potassium 4.04 (3.5-5.1) mmol/L WBC Trends 04/10/18 04/11/18 04/12/18 Range/Units 22:17 04:15 06:00 WBC 8.46 8.01 4.24 (4.2-10.2) K/ul 04/13/18 Range/Units 06:45 WBC 3.45 L (4.2-10.2) K/ul H/H Trends 04/10/18 04/11/18 04/12/18 Range/Units 22:17 04:15 06:00 Hgb 16.3 16.1 13.2 L (14.0-18.0) g/dl Hct 46.3 45.5 38.7 L D (42.0-52.0) % 04/13/18 Range/Units 06:45 Hgb 13.8 L (14.0-18.0) g/dl Hct 39.3 L (42.0-52.0) % CPK/Troponin I Trends 04/10/18 04/11/18 04/11/18 Range/Units 22:17 00:59 04:15 Total Creatine Kinase 274.3 H 262.7 H 313.8 H (55-170) U/L CK-MB (CK-2) 2.730 H 2.740 H 2.780 H (0.0-2.38) ng/ml CK-MB (CK-2) % 0.9900 1.0400 0.8800 Troponin I 0.018 0.024 0.028 (0.0000-0.120) ng/ml 04/11/18 04/11/18 04/12/18 Range/Units 07:50 13:30 06:00 Total Creatine Kinase 365.7 H 332.3 H 140.9 (55-170) U/L CK-MB (CK-2) 3.280 H 3.610 H 2.540 H (0.0-2.38) ng/ml CK-MB (CK-2) % 0.8900 1.0800 1.8000 Troponin I 0.030 0.025 0.026 (0.0000-0.120) ng/ml Head CT 04/10/18: Negative CT of the head. Abd/Pelvis CT 04/10/18: No inflammatory process, bowel or urinary obstruction seen, liver steatosis. Echocardiogram 04/11/18: LVH enlarged left atrial cavitiy. NOrmal ventricular contractility, normal valves. Normal EF. Doppler LE bilaterally 04/11/18: Negative Abdomen pelvis ct with/wo contrast 04/11/18: No acute abdominal/pelvic process. NO definite e/o mets. Fatty liver. Cyst in kidney. Scerlosis inferior endplate L1 degenerative. W/ history of prstate cancer needs bone scan to eval mets D/w family to eval as OP. CHEST CT (04/12/18): No acute cardiopulmonary process or e/o mets. Ground-glass nodule RLL postinflammatory. Consults: CARDIOLOGY. Pending Labs: Hepatitis C Quantitative RNA Hepatitis C Genotype. Education Provided to Patient and Family: 1. Insulin admin taught by me in office, nursing in hospital 2. Diabetic education 3. Foot health 4. How/when to use insulin 5. S/Sx of hypoglycemia, hyperglycemia 6. F/U Monday with me 7. 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 Keep Sugar log and bring this to clinic. Follow-ups: 1. Dr. Bolivar Monday 1430 (2:30). 2. Biometrician 10/4/18 1400 (2:00) Disposition: HOME SELF-CARE Hospital Course: 67 yr old white male presented with to ER 04/10/18, new patient to me as of 04/09/18. Presented to my clinic with leg cramps/trouble sleeping and prominent nocturia on 04/09/18. We ordered CBC/CMP/magnesium, UA had glucose, checked A1C in a non diabetic and I was called by lab with A1C of 10.7. He was instructed to come back into clinic 04/10/18 for further evaluation. He came into office at 8 am and blood glucose was 500. We discussed his new dx, he has not been previously diabetic and reviewed dietary needs, food health, eye health, BP health, heart health and discussed multiple facets of the DM dx. Labs were pending other than the A1C but we discussed insulin, demo how to give shot using pen and he gave himself 10 units of lantus in office. Discussed to return to see me in am, try to manage as OP. We talked about overnight obs hospital stay, declined. I was paged just after midnight 04/11/18 that patient has been in ER and that labs were abnl. He presented to ER with w/ c/o sugars up, legs cramping and thirsty. Dr. Mix in ER saw him 21:50. SIRS not active, no e/o infection. Sx present ~1 week, reported polyuria, polydipsia but no polyphagia. Newly dx dm as of 04/11. History of prostate cancer, ? bladder cancer, history of CHF, following with Dr. Nesibtt historically but changing to me. He felt a little better after having some fluids. DM 2, HTN, thyroid disease, anxiety, arthritis, back pain, bladder cancer?, Prostate cancer , former smoker by history. Sodium of 124 (corrected to normal), K+ 6.23, cl 87.3, Creatinine 1.14 w/ GFR 64, Glucose 737.4, a1c from 04/09/18 10.7, calcium 9.5, bili 3.47, AST 93.4, ALT 195.5, alk phos 184.3, ammonia is fine but CK 274.3, Troponin 0.018, EKG normal. Dehydrational labs evident. Tox negative. Urine 3+ glucose. ABG appeared okay with O2 93, pH 7.424, pC02 38.4, p02 66, hco3 25.1, co2 26. I checked on patient in ER and he was feeling fine, better actually just after midnight. Cramps were better, less thirsty and he felt more energy. He had no complaints at present other than really tired, really thirsty. Cramps better, no chest pain, no SOA, no abd pain, no N/V/D, no URI symptoms. Polyuria improving per his report. We reviewed labs together Sodium 124 corrected to 139 and normal with degree of hyperglycemia of 737. There was concern kayexalate given but this was held prior to admin. Imaging reviewed CT Abd/pelvis without contrast: Fatty Liver/BRIDGES is possible. CT Head negative. He was admitted to SCU-1 in hospital as inpatient. NO ketones in urine, acetone was negative. Fluids admin, insulin drip 5 units/hour (0.05units/kg/hour), accucheck q1 hour w/ goal rate of 50-70 drop per hour. Added K+ back to fluids when K+ in blood <5.3. Changed to D5NS + K when glucose <250. Insulin changed over to subcutaneous yesterday am with drip ending at 12:00 after taper, lantus and q2 hour and mealtime insulin (BASAL/BOLUS). Liver enzymes elevated, improved throughout stay, imaging evaluated, hepatitis panel ordered. Hep C abs were positive and confirmation labs ordered. Leg cramps improved and resolved 04/12-04/13. Elevated CKMB during stay, we monitored serial CK and Serial troponins. Continued to rise for about 24 hours, cardiology consulted, echo negative. Did not feel cardiac, I appreciate cardiology assistance. REquested last echo, compared to this one and essentially unchanged. He had history of CHF, gentle fluid hydration, monitored weights and daily I+O. K+ throughout stay was monitored. No kayexalate was given. K+ replaced when <5.3 tolerated well, tele entire visit. Diet given through stay ADA held yesterday am only for procedure. Lovenox was used throughout stay for DVT prophy. Goal as noted admit to SCU 1, monitor sugars and correct them. He started feeling much better 04/11/18 pm and improved throughout the hospital stay. Never chest pain. Leg cramps resolved by 04/12 and still gone 04/13. Sugars dropped from 737 to 24.2 to 603.4 to 439.7 steadily to <250 and only after meals did this spike back up. Thyroid levels were checked and okay. With dilution, he had some pancytopenia, hypocalcemia corrected to 8.7 from 7.9. I checked an ionized which was a touch low. Labs before d/c normal Ca++. Asymptomatic suzanne throughout hospital stay. K+ stable. Transaminitis improved. Imaging as noted. Patient continued to improve today, no drip for 24 hours as of today and sugars 140's-250's which is reasonable. We will d/c home with tresiba 20 units and 7 units insulin with meals w/ correction (1 unit for every 50 above 150). We will see in office on monday. 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 and patient educated at length. Need to f/u on hepatitis C labs, need to f /u on abnormal CT chest with ?bone scan and need to f/u on abnl serum protein electrophoresis. We obtained and reviewed Outside Records from Dr. Nesbitt 220 lb 10/11/17 99.8 kg. H/o CHF unspec chronicity. LF systolic function normal EF 58.9%. LV thickness concentric hypertrophy. NO valve issues. No mention of CHF or diastolic dysfxn. Dr. Nesbitt note 09/28/17. present numerous issues. HTN/Arrhythmia, PAC/PVC, CHF years history of diastolic problem. SOA, LE edema on /off. Follows with cards. Hyperthyroidism. Numerous years. Chronic narcotic pain med s for back pain. GLucose 165 09/2017 AST 53, ALT 97 appears chronically elevated. Bili 2.3 chronically elevated, cr 0.75. Lipids 141 total, hdl 27, ldl 72. ESR 11, CRP 0.64, TSH 1.150, Free T4 1.14. CBC with WBC 6.19, hgb 16.6, plt 207. PSA 11/24/16 <0.070, 3.820 09/09/16, same 09/02/16. No recent A1C. May have had hyperglycemia for a while. Day of discharge physical exam unchanged from 04/12/18. Constitutional: Appearance-No acute distress, Consistent with stated age. Orientation- Oriented x 3, alertGait-Normal pace, normal arm movement. General- Patient is pleasant and cooperative with the interview and exam. Asleep on entry easily awoken. not present this am. Integumentary: General-No rashes, ulcers or lesions. Palpation- Normal skin moisture/turgor. Skin is warm to touch, appropriate. Capillary refill is normal bilateral Upper and lower extremity. Head/Neck: Head- normocephalic and atraumatic. Neck- without visible/palpable lumps or pulsations. Palpation- No bony tenderness about head/neck along frontal, occipital, temporal, parietal, mastoid, jawline, zygoma, orbit or any other location. NO temporal artery tenderness. No TMJ tenderness. Neck Supple. Thyroid-No thyromegaly, no nodules Eye: Bilaterally PERRLA, EOMI. No discharge. Upper and lower eyelids are normal. Sclera/conjunctiva normal without discharge. Cornea is normal and clear. Lens is normal. Eyeball appears normal. No ciliary flushing, no conjunctival injection. ENMT: Nose and sinus- No sinus tenderness along frontal/maxillary region. External appearance normal and midline. Nares- bilateral quiet airflow, no discharge. Nasal mucosa- No bleeding noted and no ulcerations observed. [place], moist. Turbinates non boggy. Lips- normal color, moist without cracks/lesions Oral Cavity/Palate- hard/soft palate intact without lesions, oral mucosa pink and moist. rynx- no pharyngeal erythema, Uvula midline. No post nasal drip. No exudate. Salivary glands- Non tender to palpation CHEST/LUNG: Inspection- symmetric chest wall no pectus deformity. Normal effort , no distress, no use of accessory muscles. Palpation- nontender sternum, ribline. No abnormal pulsations. Auscultation- Breath sounds normal throughout all lung arellano. Normal tracheal sounds, Normal bronchial sounds overlying sternum, Bronchovessicular sounds normal between scapulae posteriorly, Normal vessicular breath sounds heard throughout periphery. Lungs are clear today. Adventitious sounds- No wheezes, rales, rhonchi. No crackles, no e/o fluid overload at this time. CARDIOVASCULAR: Carotid artery- normal, no bruits or abnormal pulsations. Jugular vein- no pulsations. Palpation/Percussion- Normal PMI, no palpable thrill Auscultation- Regular rate and rhythm. No murmur noted in sitting, supine positions. Extremities- no digital clubbing, cyanosis, edema, increased warmth. ABDOMEN: Inspection- normal and no visible pulsations. Normal contour. Auscultation- Bowel sounds normal, no abdominal bruits. Palpation/Percussion- soft, non-tender, no rebound tenderness, no rigidity (guarding), no jar tenderness, no masses. Liver-no hepatomegaly, Spleen no splenomegaly, Hernias - none. Rectal not examined. Peripheral Vascular: Upper extremity Left- Normal temperature with pink nailbeds and no ulcerations. Upper extremity Right- Normal temperature with pink nailbeds and no ulcerations. Lower extremity- Normal temperature with pink nailbeds and no ulcerations. DP pulses 2+ bilaterally. Pedal hair intact. Normal capillary refill. Edema- No edema. Musculoskeletal: Generalized-No generalized swelling or edema of extremities, no digital clubbing or cyanosis, neurovascularly intact all four extremities. Lower extremity- Hip: Not tender to palpation, no pain, no swelling, edema or erythema of surrounding tissue, normal strength and tone. Normal appearing hip ROM bilaterally without pain. Spine/Ribs- No deformities, masses. + tenderness paraspinal bilateral lumbar. No straight leg raise. Calves not tender. , no known fractures, normal strength , Normal ROM. Normal stability No tenderness along C/T/L spine. Normal appearing ROM about spine. Neurological: General- Moves all 4 extremities symmetrically. Symmetrical face and body posture. Cranial nerves- individually evaluated II-XII and intact. PERRLA, Normal EOMI, visual/special senses appear intact, Face is symmetrical and normal sensation/movement, normal tongue, normal strength/posture of neck musculature. Reflexes- intact with DTR 2+ patellar, Achilles, bicep, brachial, tricep. Ankle clonus normal with 2 beats. Strength- 5/5 bilateral UE and LE. Soft touch- intact bilateral UE and LE. Temperature sensation- intact bilateral UE and LE. Neuropsych: Oriented- Person, place, time. (AAOx3), Mood/affect- normal and congruent. Able to articulate well. Speech-Normal speech, normal rate, normal tone, normal use of language, volume and coherence. Thought content- normal with ability to perform basic computations and apply abstract thought/reason. Associations- intact, no SI/HI, no hallucinations, delusions, obsessions. Judgment/insight- Appropriate. Memory-Recall intact, remote and recent memory intact. Knowledge- Age appropriate fund of knowledge, concentration and attention span normal. Lymphatic: Head/Neck- normal size and non tender to palpation. Axillary- normal size and non tender to palpation. Femoral and Inguinal- normal size and non tender to palpation. Plan: 1. Check blood sugar every morning when you wake up and write this down on journal for fasting sugar 2. Before each meal check your sugars. As your are eating inject the following amount of insulin. 100-150 7 units, 151-200 8 units, 201-250 9 units, 251-300 10 units, 301-350 11 units. If >300 check sugar again 30-60 minutes later and see how the sugars are doing. Call if still >300. 3. We need to follow up on hepatitis C workup. 4. We need to follow up on abnormal protein electrophoresis. 5. I will see you in office on monday at 230 pm. 6. We will check bloodwork that day. 7. Keep appt with DIETITIANWAQAR ON April AT 2 PM AT [facility] 8. If you have a blood pressure machine, please check blood pressure 1-2x daily document and bring to office visit. I want to see the blood sugar log at the next office visit. If you do not eat, do not take the insulin. It will cause you to pass out and may cause more problems if sugars drop too much. Resume home medications see me again in office next week. >30 minutes spent in discharge, not including documentation
== END 2018-04-13 13:56 | disposition home or self-care (01) | DRG 696 ==
LOC: ED 21:33 → SCU 04-11 00:03
PROVIDERS: ADMIT Family Medicine; ATTEND Family Medicine
DX: R35.8 Other polyuria (principal); D61.818 Other pancytopenia; E87.1 Hypo-osmolality and hyponatremia; E87.5 Hyperkalemia; E83.51 Hypocalcemia; R53.81 Other malaise; R53.1 Weakness; R25.2 Cramp and spasm; R74.8 Abnormal levels of other serum enzymes; R74.0 Nonspecific elevation of levels of transaminase and lactic acid dehydrogenase [LDH]; R76.8 Other specified abnormal immunological findings in serum; R93.8 Abnormal findings on diagnostic imaging of other specified body structures; I50.9 Heart failure, unspecified; Z79.4 Long term (current) use of insulin
CPT/HCPCS: 36415; 80053; 80074; 80306; 81001; 82009; 82140; 82310; 82550; 82553; 82803; 82947; 82962; 83735; 84132; 84165; 84439; 84443; 84484; 85025; 85651; 87081; 87902; 93005; 93010; 96361; 96365; 97802; 99284

== ENCOUNTER 2018-04-17 16:13 | Outpatient (CLI) | END 2018-04-17 16:14 | disposition home or self-care (01) | LOC: FCC-LAB 16:13 | PROVIDERS: ATTEND Family Medicine | DX: E11.9 Type 2 diabetes mellitus without complications (principal); R25.2 Cramp and spasm | CPT/HCPCS: 36415; 80053; 83735; 85025 ==

== ENCOUNTER 2018-04-18 11:50 | Outpatient (CLI) | END 2018-04-18 11:51 | disposition home or self-care (01) | LOC: FCC-LAB 11:50 | PROVIDERS: ATTEND Family Medicine | DX: E11.65 Type 2 diabetes mellitus with hyperglycemia (principal); R35.1 Nocturia | CPT/HCPCS: 36415; 83519; 83525; 84681; 86341 ==

== ENCOUNTER 2018-12-13 17:32 | Emergency (ER) ==
[2018-12-13 17:39] VITALS: BP 116/70; TEMP 98.1; BMI 27.3
--- NOTE | 2018-12-13 18:48 | ED.PDOC ---
General Stated Complaint: ABDOMINAL PAIN RLQ X 1 DAY Time Seen by Physician: 17:32 (SEEN WITH MEAGAN ) Mode of Arrival: Walk-In Information Source: Patient Exam Limitations: No limitations Nursing and Triage Documentation Reviewed and Agree: Yes Does patient meet sepsis criteria?: No System Inflammatory Response Syndrome: Not Applicable <MINDAKAMALA - Last Filed: 12/13/18 18:46> <LYUBOV KANG - Last Filed: 12/14/18 04:05> ED Provider: Dr. LYUBOV KANG Chief Complaint: Abdominal Pain Primary Care Provider: GEORGETTE PHELPS Sepsis Protocol: For patient's 13 years and over: Temp is 96.8 and below OR 101 and greater Pulse >90 BPM Resp >20/minute Acutely Altered Mental Status Are patient's symptoms suggestive of a new infection, such as: -Pneumonia -Skin, Soft Tissue -Endocarditis -UTI -Bone, Joint Infection -Implantable Device -Acute Abdominal Infection -Wound Infection -Meningitis -Blood Stream Catheter Infection -Unknown GI Complaint Exam - Abdominal Pain Complaint/Exam Onset: Gradual Duration: RLQ PAIN X 1 DAY Symptoms Are: Still present Timing: Constant Initial Severity: Mild Current Severity: Mild Location of Pain: RLQ Radiates To: Reports: RLQ. Denies: Chest, Back, Flank, LLQ Character: Reports: Aching Aggravating: Reports: None Alleviating: Reports: None Associated Signs and Symptoms: Reports: Constipation. Denies: Diaphoresis, Fever, Cough, Chest pain, Dizziness, Back pain, Blood in stool, Dysuria, Urinary frequency, Decreased urine output, Decreased appetite, Discharge, Nausea , Vomiting, Diarrhea, Decreased activity AAA Risk Factors: Reports: Hypertension Cardiac Risk Factors: Reports: DM, Hypertension Testicular Torsion Risk Factors: Reports: None Surgical Obstruction Risk Factors: Reports: None Related Surgical History: Reports: None Abdominal Findings: Present: None Differential Diagnoses: Appendicitis, Bowel Obstruction, Diverticulitis, Gastroenteritis, Ureteral Stone, UTI <KAMALA PERLA - Last Filed: 12/13/18 18:46> Review of Systems - Review Of Systems Constitutional: Reports: No symptoms Eyes: Reports: No symptoms Ears, Nose, Mouth, Throat: Reports: No symptoms Respiratory: Reports: No symptoms Cardiac: Reports: No symptoms GI: Reports: Abdominal pain : Reports: No symptoms Musculoskeletal: Reports: No symptoms Skin: Reports: No symptoms Neurological: Reports: No symptoms Endocrine: Reports: No symptoms Hematologic/Lymphatic: Reports: No symptoms All Other Systems: Reviewed and Negative <JOSELINKIMKAMALA Last Filed: 12/13/18 18:46> Past Medical History - Past Medical History Previously Healthy: No Endocrine: Reports: DM 2, Hyperthyroid Cardiovascular: Reports: Hypertension Respiratory: Reports: None Hematological: Reports: None Gastrointestinal: Reports: None Genitourinary: Reports: None Neuro/Psych: Reports: Anxiety Musculoskeletal: Reports: Arthritis, Back Pain Cancer: Reports: Other (prostate) - Surgical History General Surgical History: Reports: None - Family History Family History: Reports: None - Social History Smoking Status: Former smoker Hx Substance Use: No Alcohol Screening: None <MINDAKAMALA Last Filed: 12/13/18 18:46> Physical Exam - Physical Exam Appearance: Well-appearing, No pain distress, Well-nourished Eyes: REMI, EOMI, Conjunctiva clear ENT: Ears normal, Nose normal, Oropharynx normal Respiratory: Airway patent, Breath sounds clear, Breath sounds equal, Respirations nonlabored Cardiovascular: RRR, Pulses normal, No rub, No murmur GI/: Soft, Nontender, No masses, Bowel sounds normal, No Organomegaly Musculoskeletal: Normal strength, ROM intact, No edema, No calf tenderness Skin: Warm, Dry, Normal color Neurological: Sensation intact, Motor intact, Reflexes intact, Cranial nerves intact, Alert, Oriented Psychiatric: Affect appropriate, Mood appropriate <JOSELINKIMKAMALA Last Filed: 12/13/18 18:46> Interpretation - Radiology Interpretation Radiology Interpretation By: Radiologist Radiology Results: No acute changes Exam Interpreted: CT Scan <LYUBOV KANG Last Filed: 12/14/18 04:05> Critical Care Note - Critical Care Note Total Time (mins): 0 <MINDAKAMALA Last Filed: 12/13/18 18:46> Course - Course Hematology/Chemistry: 12/13/18 18:57 12/13/18 18:57 <LYUBOV KANG Last Filed: 12/14/18 04:05> - Course Orders, Labs, Meds: Lab Review 12/13/18 12/13/18 12/13/18 18:57 18:57 19:00 WBC 5.91 RBC 4.54 L Hgb 14.9 Hct 42.7 MCV 94.1 H MCH 32.8 H MCHC 34.9 RDW Coeff of Tai 13.2 Plt Count 143 Immature Gran % (Auto) 0.2 Neut % (Auto) 64.9 Lymph % (Auto) 25.4 Lucas % (Auto) 7.8 Eos % (Auto) 1.4 Baso % (Auto) 0.3 Immature Gran # (Auto) 0.0 Neut # (Auto) 3.8 Lymph # (Auto) 1.5 Lucas # (Auto) 0.5 Eos # (Auto) 0.1 Baso # (Auto) 0.0 Sodium 140.6 Potassium 4.03 Chloride 106.0 Carbon Dioxide 25.6 Anion Gap 13.03 BUN 19.7 Creatinine 0.74 Estimated GFR (MDRD) 105.00 BUN/Creatinine Ratio 26.62 Glucose 127.7 H Calcium 9.20 Total Bilirubin 2.07 H AST 49.0 ALT 78.0 H Alkaline Phosphatase 89.0 Total Protein 7.63 Albumin 4.28 Globulin 3.35 Albumin/Globulin Ratio 1.27 Amylase 96.1 Lipase 93.7 Urine Color Yellow Urine Clarity Clear Urine pH 5.5 Ur Specific [place] 1.025 Urine Protein Negative Urine Glucose (UA) Negative Urine Ketones Negative Urine Blood Negative Urine Nitrite Negative Urine Bilirubin Negative Urine Urobilinogen 0.2 Ur Leukocyte Esterase Negative Orders Category Date Time Status AMYLASE Stat LAB 12/13/18 18:57 Completed CBC W/ AUTO DIFF Stat LAB 12/13/18 18:57 Completed COMPREHENSIVE METABOLIC PANEL Stat LAB 12/13/18 18:57 Completed LIPASE Stat LAB 12/13/18 18:57 Completed URINALYSIS C & S IF INDICATED Stat LAB 12/13/18 19:[address] ABDOMEN/PELVIS WO CONTRAST Stat RADS 12/13/18 18:43 Completed Vital Signs: Temp Pulse Resp BP Pulse Ox 12/13/18 17:32 98.1 F 62 20 116/70 95 Departure - Departure Pt referred to PMD for follow-up: Yes IPMP verified?: No Disposition Discussed With: Patient, Family <KAMALA PERLA - Last Filed: 12/13/18 18:46> - Departure Time of Disposition: 21:00 <LYUBOV KANG - Last Filed: 12/14/18 04:05> - Departure Disposition: HOME SELF-CARE Discharge Problem: Abdominal pain Instructions: Abdominal Pain (ED) Condition: Fair Additional Instructions: Please call your Family Physician as soon as possible to schedule a follow-up appointment. You Need to follow up for Abdominal ultrasound due to abnormal liver function test and Abnormal CT of stomach. Allergies/Adverse Reactions: Allergies No Known Allergies Allergy (Verified 12/13/18 17:39) Home Medications: Ambulatory Orders Alprazolam [Xanax] 0.5 mg PO TID PRN 03/27/17 Furosemide [Lasix] 40 mg PO DAILY 03/27/17 Hydrocodone Bit/Acetaminophen [[place] 7.5-325] 7.5 - 325 mg PO Q8H PRN 03/27/17 Lisinopril [Zestril] 20 mg PO BID 03/27/17 Potassium Chloride [K-Dur] 20 meq PO TID 03/27/17
--- NOTE | 2018-12-13 19:12 | CT ---
EXAM: CT of the abdomen pelvis without contrast History: Right-sided abdominal pain, right lower quadrant abdominal pain. Technique: Multiplanar CT images through the abdomen pelvis were obtained without the administration of IV contrast Findings: Lung bases are clear. No acute osseous abnormalities. Degenerative changes of the spine again noted. The liver is fatty and demonstrates nodular surface contour. The 4.2 cm possible mass within the fun dus of the stomach. Status post cholecystectomy. Spleen is mildly enlarged. No peripancreatic infl ammation. Adrenal glands are within normal limits. No renal stones and no hydronephrosis. Stable s mall simple cyst within the left kidney. Atherosclerotic vascular calcifications. The appendix is n ormal. No bowel obstruction. No bladder wall thickening. No free air and no ascites. No perirecta l inflammation. Impression: 1. No acute intra-abdominal or pelvic process. 2. Hepatic steatosis. 3. Cirrhotic configuration of the liver. 4. Mild splenomegaly. 5. Possible mass within the fundus of the stomach. Recommend further evaluation with upper endoscop y.
== END 2018-12-13 21:05 | disposition home or self-care (01) ==
LOC: ED 17:32
DX: R10.31 Right lower quadrant pain (principal); R94.5 Abnormal results of liver function studies; R93.5 Abnormal findings on diagnostic imaging of other abdominal regions, including retroperitoneum; K59.00 Constipation, unspecified; E11.9 Type 2 diabetes mellitus without complications; E03.9 Hypothyroidism, unspecified; I10 Essential (primary) hypertension; Z79.899 Other long term (current) drug therapy
CPT/HCPCS: 36415; 80053; 81001; 82150; 83690; 85025; 99283